=== PATIENT | male | born 1955 | race Caucasian/White ===

== ENCOUNTER 2016-07-08 12:20 | Inpatient (IN) | payer OTHER ==
[~2016-07-08] VITALS: Ht 180.3 cm; Wt 83.0 kg
[~2016-07-08 12:20] MED LIST: ATORVASTATIN CA20 MG PO; ESCITALOPRAM10 MG PO; LISINOPRIL40 MG PO; METOPROLOL TART50 MG PO
--- NOTE | 2016-07-08 12:23 | NUR ---
PT IN AGREEMENT TO APPROX 1.5 HR WAIT PRIOR TO SIGNING IN.
--- NOTE | 2016-07-08 12:35 | NUR ---
TRIAGE: 60 Y/O MALE PRESENTS C/O 10/10 LEFT SIDED ABDOMINAL PAIN SINCE 0300 THIS MORNING. REPORTS +N/+V/-DIARRHEA THIS MORNING WELL. LAST BM THIS MORNING, NORMAL PER PATIENT. PT DENEIS CHEST PAIN, SOB. REPORTS PAINFUL INSPIRATIONS.
--- NOTE | 2016-07-08 13:04 | ED GENERAL ADULT ---
History of Present Illness General Chief Complaint: Abdominal Pain/Flank Pain Stated Complaint: ABD PAIN, X 12 HRS Source: patient Exam Limitations: no limitations Vital Signs & Intake/Output Vital Signs & Intake/Output Vital Signs Date Time Temp Pulse Resp B/P B/P Pulse O2 O2 Flow FiO2 Mean Ox Delivery Rate 07/08 1545 97.5 107 18 140/93 91 07/08 1432 98.4 110 20 184/78 07/08 1411 98.4 110 20 184/78 94 Room Air 07/08 1233 98.3 115 18 183/100 97 Room Air Room Air Allergies Coded Allergies: NO KNOWN ALLERGIES (10/14/14) Reconcile Medications Aspirin (Aspirin*) 81 MG TAB.CHEW 1 TAB PO DAILY CARDIAC (Reported) Atorvastatin Calcium 20 MG TABLET 1 TAB PO DAILY HPL (Reported) Escitalopram Oxalate 20 MG TABLET 1 TAB PO DAILY MENTAL HEALTH (Reported) Lisinopril 40 MG TABLET 1 TAB PO DAILY HTN (Reported) Trazodone HCl 50 MG TABLET 1 TAB PO QPM INSOMNIA (Reported) Triage Note: TRIAGE: 60 Y/O MALE PRESENTS C/O 10/10 LEFT SIDED ABDOMINAL PAIN SINCE 0300 THIS MORNING. REPORTS +N/+V/-DIARRHEA THIS MORNING WELL. LAST BM THIS MORNING, NORMAL PER PATIENT. PT DENEIS CHEST PAIN, SOB. REPORTS PAINFUL INSPIRATIONS. Triage Nurses Notes Reviewed? yes Onset: Abrupt Duration: hour(s): Timing: recent history HPI: 07/08/16 2 PM This is a 60-year-old male who presents to the emergency department complaining of abdominal pain and bilious vomiting. The patient states he was in his usual state of health until today when he's had 3-4 episodes of vomiting up bile and periumbilical pain. He denies fever or diarrhea. His last bowel movement was earlier today and was normal. There was no blood in the stool. He has a past medical history of corneal problems. Past surgical history for corneal transplant, he also has a cervical fusion. His medications include lisinopril, Lipitor, aspirin and trazodone for sleep. He denies any drug allergies. He also has a history of low back pain. He grades the pain is 8 out of 10 right now. The onset of the symptoms were abrupt, the duration was just today, the severity was significant; as his symptoms required him to come to the emergency department for care. Past History Travel History Traveled to [place] past 21 day No Medical History Any Pertinent Medical History? 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 No Review of Systems Review of Systems Constitutional: Denies: fever. EENTM: Reports: see HPI. Respiratory: Denies: short of breath. Cardiovascular: Denies: chest pain. GI: Reports: abdominal pain, nausea, vomiting. Genitourinary: Reports: no symptoms. Musculoskeletal: Reports: back pain. Skin: Denies: rash. Neurological/Psychological: Denies: headache, numbness. Hematologic/Endocrine: Reports: no symptoms. Denies: bleeding. Physical Exam Physical Exam General Appearance: well developed/nourished, alert, awake, anxious, mild distress Head: atraumatic, normal appearance Eyes: Bilateral: normal appearance, PERRL, EOMI. Ears, Nose, Throat: normal pharynx, normal ENT inspection Neck: normal inspection, full range of motion Respiratory: normal breath sounds, chest non-tender, no respiratory distress Cardiovascular: regular rate/rhythm Peripheral Pulses: 4+ radial (R), 4+ radial (L) Gastrointestinal: soft, tenderness (periumbilical) Back: normal range of motion, no vertebral tenderness Extremities: normal inspection, normal range of motion, no edema Neurologic/Psych: no motor/sensory deficits, awake, alert, oriented x 3 Skin: intact, normal color, warm/dry Core Measures ACS in differential dx? No CVA/TIA Diagnosis: No Severe Sepsis Present: No Septic Shock Present: No Progress Differential Diagnoses I considered the following diagnoses in my evaluation of the patient: [ Pancreatitis, cholecystitis, cholelithiasis, appendicitis, diverticulitis, renal colic] Plan of Care: Orders Procedure Date/time Status Nothing by Mouth 07/09 B Active ED Holding Orders 07/08 164 Active Admit to inpatient 07/08 1642 Active Vital Signs 07/08 1642 Active Code Status 07/08 1642 Active Add-on Test (ER Only) 07/08 1534 Active TROPONIN LEVEL 07/08 1330 Complete LIPID PANEL 07/08 1330 Complete DIRECT LDL 07/08 1330 Complete EKG 07/08 1317 Active URINALYSIS 07/08 1316 Complete LIPASE 07/08 1316 Complete COMPREHENSIVE METABOLIC PANEL 07/08 131 Complete CBC WITHOUT DIFFERENTIAL 07/09 1315 Complete AMYLASE 07/08 131 Complete Laboratory Tests 07/08/16 1342: Urine Color YEL, Urine Clarity CLEAR, Urine pH 6.0, Ur Specific Holmen >= 1.030 , Urine Protein TRACE H, Urine Ketones 15 H, Urine Nitrite NEG, Urine Bilirubin NEG, Urine Urobilinogen 0.2, Ur Leukocyte Esterase NEG, Ur Microscopic SEDIMENT EXAMINED, Urine RBC 1-3, Urine Mucus PACKD H, Urine Hemoglobin SMALL H, Urine Glucose NEG 07/08/16 1330: Anion Gap 13, Estimated GFR > 60, BUN/Creatinine Ratio 17.1, Glucose 109 H, Calcium 8.6, Total Bilirubin 1.3, AST 269 H, ALT 196 H, Alkaline Phosphatase 141 H, Troponin I < 0.01, Total Protein 7.4, Albumin 4.0, Globulin 3.4, Albumin /Globulin Ratio 1.2, Triglycerides 2470 H, Cholesterol 283 H, LDL Cholesterol Direct < 30.00, LDL Cholesterol, Calc ND, HDL Cholesterol 25 L, Cholesterol/HDL Ratio 11 H, Amylase 93, Lipase 425 H, CBC w Diff NO MAN DIFF REQ, RBC 4.66 L, MCV 99.8 H, MCH 35.1 H, RDW 13.5, MPV 7.9, Gran % 93.3 H, Lymphocytes % 2.8 L, Monocytes % 3.6, Eosinophils % 0.2, Basophils % 0.1, Absolute Granulocytes 11.7 H, Absolute Lymphocytes 0.4 L, Absolute Monocytes 0.5, Absolute Eosinophils 0, Absolute Basophils 0, PUBS MCHC 35.2 07/08/16 1317: Troponin I Cancelled Initial ED EKG: sinus tachycardia, NSST ABNORMALITY, NO SIG CHANGE FROM THE OLD. Prior EKG: unchanged Departure Departure Disposition: STILL A PATIENT Condition: Stable Clinical Impression Primary Impression: Abdominal pain Referrals: PATTI COLE,JAMMIE Kamara (PCP/Family) Departure Forms: Customer Survey General Discharge Information Comments The patient was treated with IV fluids, IV Zofran and IV Dilaudid. labs and CT ordered. Admission Note Spoke With: FRAN CHAHAL M.D Documentation of Exam: Documentation of any treatments & extenuating circumstances including Concerns Regarding Discharge (functional status, medication knowledge or non-compliance, living conditions, etc.) that warrant an admission rather than observation: [The patient needs admission for IV fluids, IV narcotics for pain control, GI consultation] He is in severe pain requiring IV narcotics PATIENT: KENNETH MCGILL PRESENT AGE: 60 PATIENT ACCOUNT NO: [id number] : 53 LOCATION: [facility] ORDERING PHYSICIAN: FATMATA RIVAS DO SERVICE DATE: 07/08/16 EXAM TYPE: CAT - CT ABD & PELVIS W IV CONTRAST EXAMINATION: CT ABDOMEN AND PELVIS WITH CONTRAST CLINICAL INFORMATION: Periumbilical pain. Evaluate for acute diverticulitis. COMPARISON: None. TECHNIQUE: Multidetector volumetric imaging was performed of the abdomen and pelvis before and after the IV administration of 95 mL of Optiray 320 intravenous contrast. Sagittal and coronal reformatted images were obtained on the technologist's workstation. DLP: 322 mGy-cm FINDINGS: LUNG BASES: Minimal dependent bibasilar atelectasis. LIVER, GALLBLADDER, AND BILIARY TREE: There is diffuse low-attenuation of the liver parenchyma, indicative of diffuse hepatic steatosis. The liver is otherwise normal in size, shape and contour. Of note, there is an enhancing lesion within the hepatic dome measuring 1.4 x 1.4 cm (series 2, image 7). This lesion is incompletely characterized on this examination. The gallbladder is unremarkable with no evidence of radiopaque gallstones, gallbladder wall thickening, or obvious pericholecystic inflammatory changes. PANCREAS: Evaluation of the pancreas demonstrates diffuse peripancreatic inflammatory changes surrounding the distal pancreatic tail with mild heterogeneity identified within the distal pancreatic tail. This may reflect an acute pancreatitis. There are diffuse calcifications scattered throughout the pancreatic parenchyma, indicative of sequela of chronic pancreatitis. No organizing peripancreatic fluid collections are identified. SPLEEN: Unremarkable. ADRENAL GLANDS: Thickening of the bilateral adrenal glands, without visible discrete nodularity. KIDNEYS AND URETERS: The kidneys are normal in size, shape, and attenuation. No hydronephrosis, hydroureter, or calculi seen. No perinephric stranding. There are several hypoattenuating lesions within the upper pole of the right kidney visualized measuring up to 1.3 cm. This lesions are too small to further characterize but statistically speaking, most likely senior patient account representative of simple renal cortical cysts. BLADDER: Unremarkable. GASTROINTESTINAL TRACT: Normal anatomic orientation of the stomach relative to the duodenum. Normal caliber of abdominal and pelvic bowel loops, without evidence of obstruction or ileus. No circumferential bowel wall thickening with surrounding inflammatory changes to suggest an underlying infectious or inflammatory enterocolitis. Scattered colonic diverticulosis, without secondary signs of acute diverticulitis. Normal-appearing appendix within the right lower quadrant of the abdomen. No organizing intra-abdominal fluid collections or free intraperitoneal air. ABDOMINAL WALL: No significant hernia is appreciated. LYMPH NODES: Mildly prominent peripancreatic lymph nodes, likely reactive given findings suggestive of focal pancreatitis involving the distal pancreatic tail. VASCULAR: Extensive atherosclerosis of the abdominal aorta and its branching vessels, without aneurysmal dilatation. The abdominal aorta and abdominal and pelvic vessels appear to be grossly patent and opacified by intravenous contrast. PELVIC VISCERA: Unremarkable. OSSEOUS STRUCTURES: Degenerative changes of the imaged thoracolumbar spine. No visible destructive osseous lesions. Grade 1 anterolisthesis of L5 on S1. 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 IMPRESSION: 1. Diffuse peripancreatic inflammatory changes surrounding the distal pancreatic tail. This may represent focal pancreatitis of the distal pancreatic tail. Correlate with pancreatic enzyme levels. 2. Coarse calcifications scattered throughout the pancreas, indicative of sequela of chronic pancreatitis. 3. Focal heterogeneity within the distal pancreatic tail. This finding is entirely nonspecific and may represent edematous changes within the distal pancreatic tail given findings suggestive of acute focal pancreatitis. However, an underlying mass within this region cannot be entirely excluded. A nonemergent multiphase contrast-enhanced CT or MRI of the abdomen may be obtained for further characterization (pancreatic mass protocol). 4. Diffuse hepatic steatosis. Of note, there is a 1.4 x 1.4 cm enhancing lesion within the hepatic dome, incompletely characterized on this examination. This lesion may be further characterized on multiphase contrast-enhanced CT or MRI of the abdomen (liver mass protocol). The contrast-enhanced MRI of the abdomen would be helpful in evaluating both the distal pancreatic tail as well as the liver barring any contraindications to MRI. 5. 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 DICTATED BY: JACE CHEN MD DATE/TIME DICTATED:07/08/161515 SHOP WORKER:MILAN DATE/TIME TRANSCRIBED:07/08/161515 CONFIDENTIAL, DO NOT COPY WITHOUT APPROPRIATE AUTHORIZATION. <Electronically signed in Other Vendor System> SIGNED BY: JACE CHEN MD 07/08/16 1529 Critical Care Note Critical Care Note Critical Care Time: non-applicable
--- NOTE | 2016-07-08 13:11 | NUR ---
DR RIVAS AT BEDSIDE FOR EVAL
--- NOTE | 2016-07-08 13:46 | NUR ---
IV EST. BLOOD (SST/LAV/BLUE/MOYA/PINK) AND URINE TRIO SENT TO LAB. EKG SHOWN TO DR RIVAS. MEDICATED PER ORDERS. PT AND AWARE THEY ARE AWAITING CT SCAN.
[2016-07-08 13:55] LABS: ABSOLUTE BASOPHIL COUNT 0 /CUMM (0.0-0.2); ABSOLUTE EOSINOPHIL COUNT 0 /CUMM (0.0-0.7); ABSOLUTE GRANULOCYTE CT 11.7 /CUMM (1.4-6.5); ABSOLUTE LYMPH COUNT 0.4 /CUMM (1.2-3.4); ABSOLUTE MONOCYTE COUNT 0.5 /CUMM (0.10-0.60); BASOPHIL % 0.1 % (0.0-2.0); EOSINOPHIL % 0.2 % (0-5); HEMATOCRIT 46.5 % (42-52); MEAN CORPUSCULAR HGB 35.1 PG (27.0-31.0); MEAN CORPUSCULAR HGB CONC 35.2 G/DL (33.0-37.0); MEAN CORPUSCULAR VOLUME 99.8 FL (80.0-94.0); MEAN PLATELET VOLUME 7.9 FL (7.4-10.4); PLATELET COUNT 150 /CUMM (130-400); RBC DISTRIBUTION WIDTH 13.5 % (11.5-14.5); RED BLOOD CELL CT 4.66 /CUMM (4.70-6.10); WHITE BLOOD CELL COUNT 12.6 /CUMM (4.8-10.8)
[2016-07-08 14:07] LABS: GRANULOCYTE % 93.3 % (42.2-75.2)
[2016-07-08] MEDS ORDERED: TRAZODONE HCL50 M1 PO (14:11)
[2016-07-08] MEDS ORDERED: ESCITALOPRAM OX20 MG PO (14:12)
[2016-07-08] MEDS ORDERED: LISINOPRIL40 M1 PO (14:12)
[2016-07-08] MEDS ORDERED: ATORVASTATIN CA20 M1 PO (14:12)
--- NOTE | 2016-07-08 14:18 | NUR ---
DR RIVAS INFORMED OF VITALS AND PT C/O ONGOING PAIN. PT TO CT SCAN, WILL GIVE TYLENOL AND LISINOPRIL WHEN HE RETURNS.
[2016-07-08] MEDS ORDERED: ASPIRIN81 M4 PO (14:56)
--- NOTE | 2016-07-08 15:29 | CT SCAN REPORT ---
EXAMINATION: CT ABDOMEN AND PELVIS WITH CONTRAST CLINICAL INFORMATION: Periumbilical pain. Evaluate for acute diverticulitis. COMPARISON: None. TECHNIQUE: Multidetector volumetric imaging was performed of the abdomen and pelvis before and after the IV administration of 95 mL of Optiray 320 intravenous contrast. Sagittal and coronal reformatted images were obtained on the technologist's workstation. DLP: 322 mGy-cm FINDINGS: LUNG BASES: Minimal dependent bibasilar atelectasis. LIVER, GALLBLADDER, AND BILIARY TREE: There is diffuse low-attenuation of the liver parenchyma, indicative of diffuse hepatic steatosis. The liver is otherwise normal in size, shape and contour. Of note, there is an enhancing lesion within the hepatic dome measuring 1.4 x 1.4 cm (series 2, image 7). This lesion is incompletely characterized on this examination. The gallbladder is unremarkable with no evidence of radiopaque gallstones, gallbladder wall thickening, or obvious pericholecystic inflammatory changes. PANCREAS: Evaluation of the pancreas demonstrates diffuse peripancreatic inflammatory changes surrounding the distal pancreatic tail with mild heterogeneity identified within the distal pancreatic tail. This may reflect an acute pancreatitis. There are diffuse calcifications scattered throughout the pancreatic parenchyma, indicative of sequela of chronic pancreatitis. No organizing peripancreatic fluid collections are identified. SPLEEN: Unremarkable. ADRENAL GLANDS: Thickening of the bilateral adrenal glands, without visible discrete nodularity. KIDNEYS AND URETERS: The kidneys are normal in size, shape, and attenuation. No hydronephrosis, hydroureter, or calculi seen. No perinephric stranding. There are several hypoattenuating lesions within the upper pole of the right kidney visualized measuring up to 1.3 cm. This lesions are too small to further characterize but statistically speaking, most likely risk control field representative of simple renal cortical cysts. BLADDER: Unremarkable. GASTROINTESTINAL TRACT: Normal anatomic orientation of the stomach relative to the duodenum. Normal caliber of abdominal and pelvic bowel loops, without evidence of obstruction or ileus. No circumferential bowel wall thickening with surrounding inflammatory changes to suggest an underlying infectious or inflammatory enterocolitis. Scattered colonic diverticulosis, without secondary signs of acute diverticulitis. Normal-appearing appendix within the right lower quadrant of the abdomen. No organizing intra-abdominal fluid collections or free intraperitoneal air. ABDOMINAL WALL: No significant hernia is appreciated. LYMPH NODES: Mildly prominent peripancreatic lymph nodes, likely reactive given findings suggestive of focal pancreatitis involving the distal pancreatic tail. VASCULAR: Extensive atherosclerosis of the abdominal aorta and its branching vessels, without aneurysmal dilatation. The abdominal aorta and abdominal and pelvic vessels appear to be grossly patent and opacified by intravenous contrast. PELVIC VISCERA: Unremarkable. OSSEOUS STRUCTURES: Degenerative changes of the imaged thoracolumbar spine. No visible destructive osseous lesions. Grade 1 anterolisthesis of L5 on S1. 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 IMPRESSION: 1. Diffuse peripancreatic inflammatory changes surrounding the distal pancreatic tail. This may represent focal pancreatitis of the distal pancreatic tail. Correlate with pancreatic enzyme levels. 2. Coarse calcifications scattered throughout the pancreas, indicative of sequela of chronic pancreatitis. 3. Focal heterogeneity within the distal pancreatic tail. This finding is entirely nonspecific and may represent edematous changes within the distal pancreatic tail given findings suggestive of acute focal pancreatitis. However, an underlying mass within this region cannot be entirely excluded. A nonemergent multiphase contrast-enhanced CT or MRI of the abdomen may be obtained for further characterization (pancreatic mass protocol). 4. Diffuse hepatic steatosis. Of note, there is a 1.4 x 1.4 cm enhancing lesion within the hepatic dome, incompletely characterized on this examination. This lesion may be further characterized on multiphase contrast-enhanced CT or MRI of the abdomen (liver mass protocol). The contrast-enhanced MRI of the abdomen would be helpful in evaluating both the distal pancreatic tail as well as the liver barring any contraindications to MRI. 5. 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
--- NOTE | 2016-07-08 16:01 | NUR ---
DR RIVAS AT BEDSIDE TO DISCUSS RESULTS/PLAN
--- NOTE | 2016-07-08 16:21 | NUR ---
PT MEDICATED FOR PAIN AGAIN PER DR RIVAS. PT AWARE OF POC FOR GEN MED ADMISSION, AWARE HE NEEDS TO REMAIN NPO.
--- NOTE | 2016-07-08 17:45 | NUR ---
HOUSE STAFF IN WITH PT
--- NOTE | 2016-07-08 17:59 | NUR ---
PT ASSIGNED TO ROOM [id number]
--- NOTE | 2016-07-08 18:33 | History & Physical ---
PHILIPPEWOODY 07/08/16 1824: General Information and HPI MD Statement: I have seen and personally examined KENNETH MCGILL and documented this H&P. The patient is a 60 year old M who presented with a patient stated chief complaint of abdominal pain, nausea and vomiting. Source of Information: patient, family Exam Limitations: no limitations History of Present Illness: Patient is a 60-year-old gentleman with no significant past medical history presents to ED with sudden onset of epigastric pain associated with multiple episodes of nonbloody vomitus. The patient describes the pain as sharp 10/10 intensity that started 3 AM this morning and prompted his current visit to the ED. No aggravating or alleviating factors. Patient admits to excessive alcohol use several years ago, but currently drinks a couple beers every other day. Current everyday smoker. No other drug use. No recent change in medication list. Past history significant for high triglyceride levels, with patient straight levels of 1100 several years ago. Also endorses a tick bite 2 years ago, for which she got worked up at Dr. Blanco's office, came back negative for Lymes. No fevers or chills. Recent weight loss of 6 pounds, nonintentional. Poor appetite. Tearful during interview. Allergies/Medications Home Med list Aspirin (Aspirin*) 81 MG TAB.CHEW 1 TAB PO DAILY CARDIAC (Reported) Atorvastatin Calcium 20 MG TABLET 1 TAB PO DAILY HPL (Reported) Escitalopram Oxalate 20 MG TABLET 1 TAB PO DAILY MENTAL HEALTH (Reported) Lisinopril 40 MG TABLET 1 TAB PO DAILY HTN (Reported) Trazodone HCl 50 MG TABLET 1 TAB PO QPM INSOMNIA (Reported) Past History Travel History Traveled to [place] past 21 day No Medical History Neurological: NONE EENT: FUCHS DISEASE Cardiovascular: hypertension, hyperlipidemia Respiratory: NONE Gastrointestinal: NONE Hepatic: NONE Renal: NONE Musculoskeletal: rheumatoid arthritis, DEGENTIVE DISC DX Psychiatric: anxiety Endocrine: NONE Blood Disorders: NONE Cancer(s): NONE 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 Exam & Diagnostic Data Last 24 Hrs of Vital Signs/I&O Vital Signs Date Time Temp Pulse Resp B/P B/P Pulse O2 O2 Flow FiO2 Mean Ox Delivery Rate 07/08 1835 96.9 108 20 160/90 94 Room Air 07/08 1545 97.5 107 18 140/93 91 07/08 1432 98.4 110 20 184/78 05 1411 98.4 110 20 184/78 94 Room Air 07/08 1233 98.3 115 18 183/100 97 Room Air Room Air Intake & Output 07/08 1600 07/08 0800 07/08 0000 Intake Total Output Total Balance Patient 184 lb Weight Weight Reported by Patient Measurement Method Physical Exam General Appearance Alert, Oriented X3, Cooperative Skin No Rashes, No Breakdown HEENT Atraumatic Neck Supple Cardiovascular Regular Rate, Normal S1, Normal S2 Lungs Clear to Auscultation, Normal Air Movement Abdomen Normal Bowel Sounds, Soft, epigastric tenderness. Extremities No Clubbing, No Cyanosis, No Edema Diagnostic Data Other Results Abdominal CT: 1. Very subtle findings are seen with suggestion of gastric wall thickening involving the fundus and body with minimal surrounding hyperemia and adenitis. Findings are best appreciated on the thin section images and in the clinical setting provided, raise the question of subtle gastritis. Endoscopic correlation is requested. 2. No evidence of bowel obstruction or perforation is seen. 3. Scattered colonic diverticulosis with no evidence of acute diverticulitis. 4. Abnormal infiltration of the skin and the underlying fat in the periumbilical region. This may be related to acute cellulitis/panniculitis versus posttraumatic or postsurgical change. Close clinical correlation is requested. 5. Nonobstructing mid right renal calcification. 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 Patient does have history of excess alcohol intake several years ago, current alcohol consumption is 2 beers every other day. Yesterday, patient had 3-4 alcoholic drinks. Acute pancreatitis: Likely secondary to hypertriglyceridemia, or alcohol use. Aggressive IV hydration. Zofran for nausea vomiting. Analgesia with Dilaudid when necessary, avoid Tylenol given transaminitis. Nothing by mouth. CT evidence of possible pancreatic mass and liver mass. GI consult. Start gemfibrozil, get endocrinology consult. Insomnia: Continue trazodone(patient insists) by mouth, after Zofran. Continue all other meds tomorrow, as tolerated. DNR/DNI. As Ranked By This Provider Problem List: 1. Abdominal pain Core Measures/Miscellaneous Acute Coronary Syndrome ACS Diagnosis: No Cerebrovascular Accident CVA/TIA Diagnosis: No Congestive Heart Failure CHF Diagnosis: No Venous Thromboembolism VTE Risk Factors: Acute medical illness, Age > 40, Immobility, paresis [facility] prophylaxis d/t: No contraindications No VTE Pharm Prophylaxis d/t: No contraindications VTE Diagnosis: No VTE Type: NONE VTE Confirmed by (Test): NONE Severe Sepsis Severe Sepsis Present: No Septic Shock Septic Shock Present: No Miscellaneous Documentation Attending Case Discussed With: FRAN CHAHAL M.D Primary Care Physician: JAMMIE ARMSTRONG MD Patient sees these Specialists None Level of Patient Care: General Medicine [facility] 07/09[facility]16 0936: General Information and HPI Allergies/Medications Allergies: Coded Allergies: NO KNOWN ALLERGIES (UNKNOWN 07/09/16) Attending MD Review Statement Attending Statement Attending MD Statement: examined this patient, discuss w/resident/PA/RN HEDIS, agreed w/resident/PA/RN HEDIS, reviewed EMR data (avail)
--- NOTE | 2016-07-08 18:34 | NUR ---
PT AMBULATORY TO AND FROM BATHROOM. C/O PAIN ONGOING, ASKING FOR FOOD, RE-EDUCATED THAT PAIN WILL WORSEN WITH PO INTAKE. MEDICATED PER EMAR.
--- NOTE | 2016-07-08 19:16 | NUR ---
REPORT CALLED TO [facility] ON 2NA, MSG LEFT FOR DISTRIBUTION
[2016-07-08 19:38] VITALS: BP 140/80
--- NOTE | 2016-07-08 20:31 | NUR ---
PT ARIVVED TO FLOOR AT . 1929. A&O X2, NOT TO TIME. C/O PAIN, CALLED FOR NEW ORDERS. LUNGS CTA, SKIN INTACT. NS RUNNING PER EMAR. BED LOW, LOCKED, CALL HAWK WITHIN REACH. BED ALARM ON. MONITOR/MAINTAIN SAFETY PRECATIONS.
[2016-07-08 22:33] VITALS: BP 164/100
[2016-07-09] VITALS (9 sets, daily range): BP systolic 122–178; BP diastolic 80–104
--- NOTE | 2016-07-09 01:21 | NUR ---
PT BP 162/100, PULSE 102. PT UPPER EXTREMITIES NOTED TO BE TREMULOUS, C/O NAUSEA AND HEADACHE, ABDOMINAL SHARP PAIN 10/10. ZOFRAN GIVEN FOR NAUSEA BY PREVIOUS RNANA AND PAIN MED GIVEN. THIS RN PAGED TEE CHAVEZ MD ABOUT SYMPTOMS AND BP. SUGGESTED TO ADD CIWA PROTOCOL DUE TO PT'S HX OF ALCOHOL USE. CIWA AND ATIVAN PRN ADDED, MD AWARE OF BP AND NO NEW INTERVENTION FOR BP AT THIS TIME.
--- NOTE | 2016-07-09 03:10 | NUR ---
BP NOW 162/98 HR 102.
--- NOTE | 2016-07-09 07:45 | PN- Housestaff ---
Subjective Follow-up For: Acute pancreatitis Complaints: abdominal pain Subjective: Patient was seen and examined this morning. He was lying comfortably on bed but admits that he still feeling abdominal pain 4 out of 10. He mentioned that he try to sip water and his pain gets aggravated. He denied any nausea. He remained afebrile with normal vital signs Review of Systems Constitutional: Denies: chills, diaphoresis. Cardiovascular: Denies: chest pain, edema. Respiratory: Denies: cough, hemoptysis. Gastrointestinal: Reports: abdominal pain. Genitourinary: Denies: discharge, frequency. Objective Last 24 Hrs of Vital Signs/I&O Vital Signs Date Time Temp Pulse Resp B/P B/P Pulse O2 O2 Flow FiO2 Mean Ox Delivery Rate 07/09 1413 97.4 107 20 122/82 94 Room Air 07/09 0959 97.8 108 20 135/90 97 Room Air / 0926 140/90 / 0738 103 160/98 / 0738 103 160/98 / 0657 99.9 104 16 166/100 98 Room Air / 0600 99.9 98 16 160/98 /08 0309 98 162/98 /08 0210 98.8 98 16 178/104 93 Room Air 05/08 0000 98.2 102 16 162/100 / 2233 98.5 102 16 164/100 93 / 1938 97.6 109 20 140/80 93 Room Air / 1835 96.9 108 20 160/90 94 Room Air Intake & Output / 1600 /08 0800 05/08 0000 Intake Total 920 1600 600 Output Total 200 650 Balance 720 950 600 Intake, IV 800 1600 600 Intake, Oral 120 Number 0 Bowel Movements Output, Urine 200 650 Patient 182 lb Weight Physical Exam General Appearance: Alert, Oriented X3, Cooperative, No Acute Distress Cardiovascular: Regular Rate, Normal S1, Normal S2, No Murmurs Lungs: Normal Air Movement Abdomen: Normal Bowel Sounds, Soft, generalized tenderness Current Medications: Current Medications Sig/Sara Start time Last Medication Dose Route Stop Time Status Admin Aspirin 81 MG DAILY 07/09 1000 AC 05/08 PO 0926 Atorvastatin Calcium 20 MG 1700 / 1700 AC / PO 0934 Enoxaparin Sodium 40 MG DAILY 07/09 1000 AC 07/09 SC 0932 Escitalopram Oxalate 20 MG DAILY 07/09 1000 AC 07/09 PO 0926 Gemfibrozil 600 MG BID 07/08 2200 AC 07/09 PO 0927 Hydromorphone HCl 1 MG ONCE ONE 07/09 0800 DC 07/09 IV 07/09 0801 0803 Hydromorphone HCl 1 MG Q4P PRN 07/09 0800 AC 07/09 IV 1354 Hydromorphone HCl 0 .STK-MED ONE 07/08 1829 DC .ROUTE Hydromorphone HCl 0.6 MG Q4P PRN 07/08 1815 DC 07/09 IV 0614 Lactated Ringer's 1,000 ML .Q5H 07/09 1600 AC 07/09 IV 1619 Lisinopril 40 MG DAILY 07/09 1000 AC 07/09 PO 0926 Lorazepam 0 Q1P PRN 07/09 0030 AC IV Nicotine 21 MG DAILY 07/08 2145 AC 07/09 TOP 0927 Ondansetron HCl 0 .STK-MED ONE 07/08 1831 DC .ROUTE Ondansetron HCl 4 MG Q6 07/08 1810 HI 07/09 IV 07/09 1201 0932 Patient Medication 1 UNIT 1700 05/08 1700 HI 07/09 Teaching ED 0508 1701 1620 Patient Medication 1 UNIT ONE NR 07/09 0800 HI Teaching ED 07/09 1400 Patient Medication 1 UNIT ONE NR 07/09 0800 HI Teaching ED 07/09 1400 Patient Medication 1 UNIT ONE NR 07/08 1830 [facility] ED 07/08 1900 Sodium Chloride 1,000 ML Q13H / 0615 DC 07/09 IV 0614 Sodium Chloride 1,000 ML ONCE ONE 07/09 0045 DC 07/09 IV 07/09 0544 0108 Sodium Chloride 1,000 ML ONCE ONE 07/08 1830 DC / IV 07/08 2329 1834 Tramadol HCl 50 MG ONCE ONE 07/08 2145 DC 07/08 PO 07/08 2146 2358 Trazodone HCl 50 MG QPM 07/08 2245 AC 07/08 PO 2313 Last 24 Hrs of Lab/Raf Results Last 24 Hrs of Labs/Mics: Laboratory Tests 07/09/16 1615: PT 10.0, INR 0.95, APTT 31, Hepatitis A IgM Ab Pending, Hep Bs Antigen Pending, Hep B Core IgM Ab Conf Pending, Hepatitis C Antibody Pending 07/09/16 0625: Anion Gap 11, Estimated GFR > 60, BUN/Creatinine Ratio 10.0, Hemoglobin A1c Pending, Iron Pending, Ferritin Pending, Total Bilirubin 1.5 H, Direct Bilirubin 0.5 H, AST 137 H, ALT 140 H, Alkaline Phosphatase 119, Lactate Dehydrogenase Pending, C-Reactive Prot, Quant Pending, Total Protein 6.3, Albumin 3.4 L, CBC w Diff NO MAN DIFF REQ, RBC 4.50 L, MCV 100.9 H, MCH 34.4 H, RDW 14.3, MPV 8.3, Gran % 86.3 H, Lymphocytes % 7.0 L, Monocytes % 6.3, Eosinophils % 0.4, Basophils % 0 L, Absolute Granulocytes 7.7 H, Absolute Lymphocytes 0.6 L, Absolute Monocytes 0.6, Absolute Eosinophils 0, Absolute Basophils 0, PUBS MCHC 34.1, Thyroglobulin Antibody < 15, Thyroid Peroxidase Ab < 28, HIV 1&2 Ab Western Blot NONREACTIVE 07/09/16 0600: YOUSIF Titer Pending, Anti-Nuclear Antibody Pending Assessment/Plan Assessment: 60-year-old gentleman with sudden onset epigastric pain, associated with several episodes of nausea and vomiting, labs revealing of triglyceride level of 2400, with a CT evidence of pancreatitis, presentation suggestive of hypertriglyceridemia induced pancreatitis. Patient does have history of excess alcohol intake several years ago, current alcohol consumption is 2 beers every other day. Yesterday, patient had 3-4 alcoholic drinks. Acute pancreatitis: Likely secondary to hypertriglyceridemia, or alcohol use. Aggressive IV hydration with Ringer's lactate at 200 mils per hour. We will keep him nothing by mouth for now. * On CT abdomen focal heterogenicity within the distal pancreatic tail was noted as well as hepatic lesion was also noted. Patient was seen by gastroenterology . Consultation appreciated * MRI with and without gadolinium was ordered and we will follow-up if normal weekend try advancing his diet to clear liquids * YOUSIF, ferritin, ferrous, HIV, YOUSIF, AMA ordered and we will follow up results Alpha-fetoprotein levels were ordered too. * Chest x-ray was ordered * Zofran for nausea vomiting. Analgesia with Dilaudid when necessary, avoid Tylenol given transaminitis. Nothing by mouth. CT evidence of possible pancreatic mass and liver mass. GI consult. Start gemfibrozil, get endocrinology consult. Hypertriglyceridemia Endocrinology consultation was requested and appreciated We will check lipid panel, LFTs, we will repeat amylase and lipase in a.m. We'll continue statins and gemfibrozil Insomnia: Continue trazodone(patient insists) by mouth, after Zofran. Continue all other meds tomorrow, as tolerated. DNR/DNI. Problem List: 1. Nausea & vomiting 2. Hypertriglyceridemia Pain Ratin Pain Location: Abdominal Pain Goal: Pain 4 or less Pain Plan: Dilaudid Tomorrow's Labs & Rationales: CBC, BEP, LFTs, lipid panel, lipase and amylase
[2016-07-09 08:58] LABS: ABSOLUTE BASOPHIL COUNT 0 /CUMM (0.0-0.2); ABSOLUTE EOSINOPHIL COUNT 0 /CUMM (0.0-0.7); ABSOLUTE GRANULOCYTE CT 7.7 /CUMM (1.4-6.5); ABSOLUTE LYMPH COUNT 0.6 /CUMM (1.2-3.4); ABSOLUTE MONOCYTE COUNT 0.6 /CUMM (0.10-0.60); BASOPHIL % 0 % (0.0-2.0); EOSINOPHIL % 0.4 % (0-5); GRANULOCYTE % 86.3 % (42.2-75.2); HEMATOCRIT 45.4 % (42-52); MEAN CORPUSCULAR HGB 34.4 PG (27.0-31.0); MEAN CORPUSCULAR HGB CONC 34.1 G/DL (33.0-37.0); MEAN CORPUSCULAR VOLUME 100.9 FL (80.0-94.0); MEAN PLATELET VOLUME 8.3 FL (7.4-10.4); PLATELET COUNT 119 /CUMM (130-400); RBC DISTRIBUTION WIDTH 14.3 % (11.5-14.5); WHITE BLOOD CELL COUNT 8.9 /CUMM (4.8-10.8)
--- NOTE | 2016-07-09 09:31 | Admission Certification ---
Admission Certification Certification Statement - As attending physician, I certify that at the time of - admission, based on clinical presentation, severity of - symptoms, need for further diagnostic testing and - therapeutic interventions, and risk of adverse outcomes - without in-hospital treatment, in my clinical assessment, - this patient requires an acute hospital stay for a minimum - of two nights or longer. I have also considered psychsocial - factors such as support system, advanced age, financial - issues, cognitive issues, and failed out-patient treatments, - past re-admission history, safety of patient, and lack of - compliance as applicable. Specific rationale supporting this admission is: Pancreatitis
--- NOTE | 2016-07-09 09:37 | PN- Att Addend ---
Attending Addendum Attending Brief Note Patient complains of moderate abdominal pain. Denies passing gas. General Appearance: Alert, No Acute Distress Skin: Grossly normal HEENT: PEERLA Neck: Supple, No JVD Cardiovascular: Regular Rate, Normal S1, Normal S2, No Murmurs Lungs: Clear to Auscultation, Normal Air Movement Abdomen: Positive bowel sounds, epigastric tenderness Neurological: Normal Speech, Strength at 5/5 X4 Ext, Cranial Nerves 3-12 NL, Reflexes 2+ Extremities: No Clubbing, No Cyanosis, No Edema Vascular: Normal Pulses Assessment 60-year-old with history of hypertriglyceridemia, hypertension and insomnia presenting with complaints of epigastric pain. He reports having a few drinks prior to admission. He does have history of alcohol dependence in the past and recently has cut down. CAT scan suggested mild pruritus with possible mass in the tail of pancreas and a 1.4 cm enhancing lesion in the liver which probably will need further characterization with MRI. Also noted hypertriglyceridemia which might be the primary cause of pancreatitis. Plan Continue IV fluids, increase IV fluids to 1 25 mL/h MRI abdomen if cervical hardware is compatible Continue gemfibrozil GI consult Keep nothing by mouth Continue current pain meds CIWA protocol with Ativan Current Medications Sig/Sara Start time Last Medication Dose Route Stop Time Status Admin Acetaminophen 0 .STK-MED ONE 07/08 1419 DC IV Acetaminophen 1,000 MG ONCE ONE 07/08 1415 DC 07/08 IV 07/08 1416 1432 Aspirin 81 MG DAILY 07/09 1000 AC 07/09 PO 0926 Atorvastatin Calcium 20 MG 1700 /08 1700 AC 07/09 PO 0934 Enoxaparin Sodium 40 MG DAILY 07/09 1000 AC 07/09 SC 0932 Escitalopram Oxalate 20 MG DAILY 07/09 1000 AC / PO 0926 Gemfibrozil 600 MG BID 07/08 2200 AC 07/09 PO 0927 Hydromorphone HCl 1 MG ONCE ONE 07/09 0800 DC 07/09 IV 07/09 0801 0803 Hydromorphone HCl 1 MG Q4P PRN 07/09 0800 AC IV Hydromorphone HCl 0 .STK-MED ONE 07/08 1829 DC .ROUTE Hydromorphone HCl 0.6 MG Q4P PRN 07/08 1815 DC 07/09 IV 0614 Hydromorphone HCl 0.5 MG ONCE ONE 07/08 1615 DC 05/07 IV 05/ 1616 1620 Hydromorphone HCl 0 .STK-MED ONE 07/08 1613 DC .ROUTE Hydromorphone HCl 0 .STK-MED ONE 07/08 1419 DC .ROUTE Hydromorphone HCl 0.5 MG ONCE ONE 07/08 1415 DC 05/07 IV 05 1416 1418 Hydromorphone HCl 1 MG ONCE ONE 07/08 1330 DC 05/07 IV 07/08 1331 1333 Hydromorphone HCl 0 .STK-MED ONE 07/08 1322 DC .ROUTE Lisinopril 40 MG DAILY 07/09 1000 AC 07/09 PO 0926 Lisinopril 0 .STK-MED ONE 07/08 1419 DC PO Lisinopril 40 MG ONCE ONE 07/08 1415 DC 05 PO 07/08 1416 1432 Lorazepam 0 Q1P PRN 07/09 0030 IV Nicotine 21 MG DAILY 07/08 2145 07/09 TOP 0927 Ondansetron HCl 0 .STK-MED ONE 07/08 1831 DC .ROUTE Ondansetron HCl 4 MG Q6 07/08 1810 /08 IV 0508 1201 0932 Ondansetron HCl 4 MG ONCE ONE 07/08 1330 DC 05/ IV 07/08 1331 1333 Ondansetron HCl 0 .STK-MED ONE 07/08 1322 DC .ROUTE Patient Medication 1 UNIT 1700 05/08 1700 Teaching ED 07/09 1701 Patient Medication 1 UNIT ONE NR 07/09 0800 [facility] ED 07/09 1400 Patient Medication 1 UNIT ONE NR 07/09 0800 [facility] ED 07/09 1400 Patient Medication 1 UNIT ONE NR 07/08 1830 [place] Teaching ED / 1900 Sodium Chloride 1,000 ML Q13H /08 0615 05/08 IV /08 1914 0614 Sodium Chloride 1,000 ML ONCE ONE 07/09 0045 DC 05/08 IV 0508 0544 0108 Sodium Chloride 1,000 ML ONCE ONE 07/08 1830 DC 05/07 IV 05/ 2329 1834 Sodium Chloride 1,000 ML BOLUS ONE 07/08 1315 DC 05/07 IV / 1414 1333 Tramadol HCl 50 MG ONCE ONE 07/08 2144 DC 07/08 PO 07/08 2146 2358 Trazodone HCl 50 MG QPM 07/08 2245 AC 07/08 PO 2313 Laboratory Tests 07/09 07/08 06 1342 Chemistry Sodium (137 - 145 mmol/L) 133 L Potassium (3.5 - 5.1 mmol/L) 3.8 Chloride (98 - 107 mmol/L) 99 Carbon Dioxide (22 - 30 mmol/L) 23 Anion Gap (5 - 16) 11 BUN (9 - 20 mg/dL) 6 L Creatinine (0.7 - 1.2 mg/dL) 0.6 L Estimated GFR (>60 ml/min) > 60 BUN/Creatinine Ratio (7 - 25 %) 10.0 Total Bilirubin (0.2 - 1.3 mg/dL) 1.5 H Direct Bilirubin (< 0.4 mg/dL) 0.5 H AST (17 - 59 U/L) 137 H ALT (21 - 72 U/L) 140 H Alkaline Phosphatase (< 127 U/L) 119 Total Protein (6.3 - 8.2 g/dL) 6.3 Albumin (3.5 - 5.0 g/dL) 3.4 L Hematology CBC w Diff Pending WBC Pending RBC Pending Hgb Pending Hct Pending MCV Pending MCH Pending RDW Pending Plt Count Pending MPV Pending Gran % Pending Lymphocytes % Pending Monocytes % Pending Eosinophils % Pending Basophils % Pending Absolute Granulocytes Pending Absolute Lymphocytes Pending Absolute Monocytes Pending Absolute Eosinophils Pending Absolute Basophils Pending PUBS MCHC Pending Urines Urine Color (YEL,AMB,STR) YEL Urine Clarity (CLEAR) CLEAR Urine pH (5.0 - 8.0) 6.0 Ur Specific [place] (1.001 - 1.035) >= 1.030 Urine Protein (NEG,<30 MG/DL) TRACE H Urine Ketones (NEG) 15 H Urine Nitrite (NEG) NEG Urine Bilirubin (NEG) NEG Urine Urobilinogen (0.1 - 1.0 EU/dl) 0.2 Ur Leukocyte Esterase (NEG) NEG Ur Microscopic SEDIMENT EXAMINED Urine RBC (0 - 5 /HPF) 1-3 Urine Mucus (FEW,NONE) PACKD H Urine Hemoglobin (NEG) SMALL H Urine Glucose (N MG/DL) NEG 07/08 07/08 1330 1317 Chemistry Sodium (137 - 145 mmol/L) 134 L Potassium (3.5 - 5.1 mmol/L) 4.1 Chloride (98 - 107 mmol/L) 96 L Carbon Dioxide (22 - 30 mmol/L) 24 Anion Gap (5 - 16) 13 BUN (9 - 20 mg/dL) 12 Creatinine (0.7 - 1.2 mg/dL) 0.7 Estimated GFR (>60 ml/min) > 60 BUN/Creatinine Ratio (7 - 25 %) 17.1 Glucose (65 - 99 mg/dL) 109 H Calcium (8.4 - 10.2 mg/dL) 8.6 Total Bilirubin (0.2 - 1.3 mg/dL) 1.3 AST (17 - 59 U/L) 269 H ALT (21 - 72 U/L) 196 H Alkaline Phosphatase (< 127 U/L) 141 H Troponin I (<0.11 ng/ml) < 0.01 Cancelled Total Protein (6.3 - 8.2 g/dL) 7.4 Albumin (3.5 - 5.0 g/dL) 4.0 Globulin (1.9 - 4.2 gm/dL) 3.4 Albumin/Globulin Ratio (1.1 - 2.2 %) 1.2 Triglycerides (<150 mg/dL) 2470 H Cholesterol (< 200 MG/DL) 283 H LDL Cholesterol Direct (<100 mg/dL) < 30.00 LDL Cholesterol, Calc (65 - 129 mg/dL) ND HDL Cholesterol (40 - 60 mg/dL) 25 L Cholesterol/HDL Ratio (0.00 - 4.88 %) 11 H Amylase (30 - 110 U/L) 93 Lipase (23 - 300 U/L) 425 H Hematology CBC w Diff NO MAN DIFF REQ WBC (4.8 - 10.8 /CUMM) 12.6 H RBC (4.70 - 6.10 /CUMM) 4.66 L Hgb (14.0 - 18.0 G/DL) 16.4 Hct (42 - 52 %) 46.5 MCV (80.0 - 94.0 FL) 99.8 H MCH (27.0 - 31.0 PG) 35.1 H RDW (11.5 - 14.5 %) 13.5 Plt Count (130 - 400 /CUMM) 150 MPV (7.4 - 10.4 FL) 7.9 Gran % (42.2 - 75.2 %) 93.3 H Lymphocytes % (20.5 - 51.1 %) 2.8 L Monocytes % (1.7 - 9.3 %) 3.6 Eosinophils % (0 - 5 %) 0.2 Basophils % (0.0 - 2.0 %) 0.1 Absolute Granulocytes (1.4 - 6.5 /CUMM) 11.7 H Absolute Lymphocytes (1.2 - 3.4 /CUMM) 0.4 L Absolute Monocytes (0.10 - 0.60 /CUMM) 0.5 Absolute Eosinophils (0.0 - 0.7 /CUMM) 0 Absolute Basophils (0.0 - 0.2 /CUMM) 0 PUBS MCHC (33.0 - 37.0 G/DL) 35.2 Vital Signs Date Time Temp Pulse Resp B/P B/P Pulse O2 O2 Flow FiO2 Mean Ox Delivery Rate 07/09 0926 140/90 05/08 0738 103 160/98 05/08 0738 103 160/98 05/08 0657 99.9 104 16 166/100 98 Room Air 05/08 0600 99.9 98 16 160/98 05/08 0309 98 162/98 05/08 0210 98.8 98 16 178/104 93 Room Air 05/08 0000 98.2 102 16 162/100 05/07 2233 98.5 102 16 164/100 93 05/07 1938 97.6 109 20 140/80 93 Room Air 05/07 1835 96.9 108 20 160/90 94 Room Air 05/07 1545 97.5 107 18 140/93 91 05/07 1432 98.4 110 20 184/78 05/07 1411 98.4 110 20 184/78 94 Room Air 05/07 1233 98.3 115 18 183/100 97 Room Air Room Air
--- NOTE | 2016-07-09 12:15 | Cons- Gastroenterology ---
See Addendum General Information and HPI Consulting Request Date of Consult: 07/09/16 Requested By: KURTIS ELIZALDE MD Reason for Consult: I was notified this morning of a request to assess pancreatitis, abnormal LFTs, nonspecific lesion dome of liver & questionable lesion caliber pancreas on imaging studies, in a patient with a history of EtOH and elevated TG 2470, HD # 2. (The patient is being seen in GI coverage for Dr. Michael Bazzi). Source of Information: patient, family (pt's sister, Liza), old records Exam Limitations: no limitations History of Present Illness: 60-year-old male, HTN/HLD (*remote TG > 1100)/non-DM/DJD/C-spine surgery/corneal transplant OD/anxiety/depression/chronic pancreatic calcifications on previous imaging studies/longtime cigarette smoker (> 46 pk yr, currently 1/2 ppd)/COPD/ past history of excessive EtOH x years (currently " a couple of beers & a shot every other day," for past few weeks [employer]), denies illicit drug use, who presented to the [facility] 07/08/2016 at 12:20 PM, complaining of "10 out of 10 " left-sided abdominal pain since 3 AM that day, starting 1/2 hour after eating tomato soup. He had nausea and + bilious, non-bloody vomiting, without any diarrhea. He denied any chest pain or shortness of breath. There was some mild left-sided pleuritic pain (history of old anterolateral left seventh rib fracture) , without any hemoptysis. He had a questionable low-grade fever (not documented as an inpatient), without any chills. He denied any symptoms of UTI or URI. 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 He denied any abdominal trauma, GERD, odynophagia, dysphagia, early satiety, hematemesis, melena, constipation, obstipation, tenesmus, or rectal bleeding. He denied any jaundice, dark urine, light stool, or pruritus. He has old tattoos. He denied any IVDA, transfusions, history of HIV, or viral hepatitis. The patient denied any history of DTs, withdrawal, confusion, or alcohol-related seizures. There is no family history of GI disease, GI malignancy, inherited pancreatitis, or inherited liver disease. *Please note, the patient has evidence of chronic pancreatitis, based on previous findings on surveillance CT chest without contrast (smoker), last done 04/23/2016: moderate COPD, stable benign bilateral pulmonary nodules, no adenopathy, mild coronary artery calcifications, bilateral adrenal hypertrophy and *mild chronic calcific pancreatitis- unchanged, small hiatal hernia, mild S- shaped thoracic scoliosis, DJD, old healed fracture anterolateral left seventh rib). *Please note, the patient has been on outpatient Atorvastatin & Lisinopril x years (*doubt that these are causative regarding pancreatitis). He denied any new medications. He denied using any sulfa medications or thiazides. He denies any rashes, acute arthralgias (aside from DJD), or viral prodrome. *As an aside, the patient has a history of colon polyps. 06/16/2008: Colonoscopy to [facility] per Dr. Michael Bazzi- hot snare polypectomy of 5 mm benign pedunculated TA. (*He is overdue for follow-up surveillance colonoscopy advised for 06/2013). Upon arrival, BP 183/100, P 115, R 18, T 98.3, O2 sat RA 97%. He was given IV NS, Zofran, Dilaudid, Lisinopril, & Tylenol in the ER. He was admitted to General Medicine. 07/08/2016: Admission labs- WBC 12.6 (93% gran, 12 gran Ab), H/H 16.4/46.5, MCV 99.8, normal RDW, PLT 150K; glucose 109, BUN/Cr 12/0.7, GFR > 60, Na 134, K 4.1, HCO3 24, AG 13, normal amylase 93, minimally elevated lipase 425 (*although serum lipemic), Ca 8.6, albumin 4.0, globulin 3.4, TBil 1.3, alk phos 141, AST 269, ALT 196, troponin < 0.01, TChol 283, *TG 2470, HDL 25; U/A- clear, yellow, > 1.030, 6.0, 1-3 WBC, packed mucous threads. 15+ ketone, sm Hgb, tr prot; neg nitrite, neg esterase. No [EtOH], UTox, or coags were sent on admission. 07/09/2016: WBC 8.9, H/H 15.5/45.4, MCV 100.9, PLT 119: BUN/Cr 6/0.6, GFR > 60. Na 133, K 3.8, HCO3 23, AG 11, albumin 3.4, globulin 2.9, TBil 1.5, DBil 0.5, alk phos 119, AST 137, ALT 140 07/08/2016: EKG- ST @ 109, normal axis, LAE, QS V1-V3, NSST inferiorly. 07/08/2016: CT ABD & PELVIS W IV CONTRAST (*personally reviewed by myself with Dr. Cody Hernández, of [facility])- 1. Diffuse peripancreatic inflammatory changes surrounding the distal pancreatic tail. This may represent focal pancreatitis of the distal pancreatic tail. Correlate with pancreatic enzyme levels. 2. Coarse calcifications scattered throughout the pancreas, indicative of sequela of chronic pancreatitis. 3. Focal heterogeneity within the distal pancreatic tail. This finding is entirely nonspecific and may represent edematous changes within the distal pancreatic tail given findings suggestive of acute focal pancreatitis. However, an underlying mass within this region cannot be entirely excluded. A nonemergent multiphase contrast-enhanced CT or MRI of the abdomen may be obtained for further characterization (pancreatic mass protocol). 4. Diffuse hepatic steatosis. Of note, there is a 1.4 x 1.4 cm enhancing vascullar lesion within the hepatic dome, incompletely characterized on this examination. This lesion may be further characterized on multiphase contrast- enhanced CT or MRI of the abdomen (liver mass protocol). The contrast-enhanced MRI of the abdomen would be helpful in evaluating both the distal pancreatic tail as well as the liver, barring any contraindications to MRI. 5. Normal gallbladder without cholecystitis or cholelithiasis. 6. 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 Allergies/Medications Allergies: Coded Allergies: NO KNOWN ALLERGIES (UNKNOWN 07/09/16) Home Med List: Aspirin (Aspirin*) 81 MG TAB.CHEW 1 TAB PO DAILY CARDIAC (Reported) Atorvastatin Calcium 20 MG TABLET 1 TAB PO DAILY HPL (Reported) Escitalopram Oxalate 20 MG TABLET 1 TAB PO DAILY MENTAL HEALTH (Reported) Lisinopril 40 MG TABLET 1 TAB PO DAILY HTN (Reported) Trazodone HCl 50 MG TABLET 1 TAB PO QPM INSOMNIA (Reported) Current Medications: Current Medications Sig/Sara Start time Last Medication Dose Route Stop Time Status Admin Aspirin 81 MG DAILY 07/09 1000 AC 07/09 PO 0926 Atorvastatin Calcium 20 MG 1700 07/09 1700 AC 07/09 PO 0934 Enoxaparin Sodium 40 MG DAILY 07/09 1000 AC 07/09 SC 0932 Escitalopram Oxalate 20 MG DAILY 07/09 1000 AC 07/09 PO 0926 Gemfibrozil 600 MG BID 07/08 2200 AC 07/09 PO 0927 Hydromorphone HCl 1 MG ONCE ONE 07/09 0800 DC 07/09 IV 07/09 0801 0803 Hydromorphone HCl 1 MG Q4P PRN 07/09 0800 AC 07/09 IV 1354 Hydromorphone HCl 0 .STK-MED ONE 07/08 1829 DC .ROUTE Hydromorphone HCl 0.6 MG Q4P PRN 07/08 1815 DC 07/09 IV 0614 Hydromorphone HCl 0.5 MG ONCE ONE 07/08 1615 DC 07/08 IV 07/08 1616 1620 Hydromorphone HCl 0 .STK-MED ONE 07/08 1613 DC .ROUTE Lisinopril 40 MG DAILY 07/09 1000 AC 07/09 PO 0926 Lorazepam 0 Q1P PRN 07/09 0030 IV Nicotine 21 MG DAILY 07/08 2145 07/09 TOP 0927 Ondansetron HCl 0 .STK-MED ONE 07/08 1831 DC .ROUTE Ondansetron HCl 4 MG Q6 07/08 1810 DC 07/09 IV 08 1201 0932 Patient Medication 1 UNIT 1700 07/09 1700 Teaching ED 07/09 1701 Patient Medication 1 UNIT ONE NR 07/09 0800 [facility] ED 07/09 1400 Patient Medication 1 UNIT ONE NR 07/09 0800 NM Teaching ED 07/09 1400 Patient Medication 1 UNIT ONE NR 07/08 1830 NM Teaching ED 07/08 1900 Sodium Chloride 1,000 ML Q13H 07/09 0615 07/09 IV 0614 Sodium Chloride 1,000 ML ONCE ONE 07/09 0045 DC 07/09 IV 07/09 0544 0108 Sodium Chloride 1,000 ML ONCE ONE 07/08 1830 DC 07/08 IV 07/08 2329 1834 Tramadol HCl 50 MG ONCE ONE 07/08 2145 DC 07/08 PO 07/08 2146 2358 Trazodone HCl 50 MG QPM 07/08 2245 AC 07/08 PO 2313 Past History Travel History Traveled to [place] past 21 day No Medical History Blood Transfusion Hx: No Neurological: NONE EENT: FUCHS DISEASE, Corneal transplant OD Cardiovascular: hypertension, hyperlipidemia Respiratory: COPD Gastrointestinal: alcoholic hepatitis (& fatty liver), pancreatitis (chronic calcifications on CT), hx colon adenoma Hepatic: fatty liver/abnl LFTs Renal: NONE Musculoskeletal: rheumatoid arthritis, DEGENTIVE DISC DX Psychiatric: anxiety, depression Endocrine: HLD, sena TG Blood Disorders: NONE Cancer(s): NONE 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 , Age 82; Cause: Mesothelioma. FATHER (smoker). , Age 58; Cause: Lung cancer. Relation not specified for: Endogenous hypertriglyceridemia Psychosocial History Where Do You Live? Home Who Do You Live With? spouse Services at Home: None Primary Language: Amharic Smoking Status: Current Everyday Smoker ETOH Use: heavy use Illicit Drug Use: denies illicit drug use Living Will? yes Power of Plastic Eye Technician/HCP? no Other Social History: . Lives with . 1 son- 33, [employer] (in [employer], in [facility]). > 46 pk yr cigarette smoker, recently decereased to 1/2 ppd. Heavy EtOH (? amount), recently cut back to "a few beers & a shot" every 2 days. Denies illicit drug use or IVDA. Old tattoos. Retired [employer] in 2013, "due to corneal disease & DJD." Functional Ability ADLs Independent: dressing, eating, toileting, bathing. Ambulation: independent IADLs Independent: shopping, housework, finances, food prep, telephone, transportation , medication admin. Employment History Employment: Retired Profession/Employer: [employer]; retired 2013 Review of Systems Review of Systems: Full 14 point review of systems otherwise noncontributory, and as above. Review of Systems Constitutional: Reports: fever (at home), unexplained weight loss (6 lbs past few weeks). Denies: chills, diaphoresis, malaise, weakness. EENTM: Reports: visual changes (hx corneal transplant OD). Denies: blurred vision, double vision, eye pain, eye drainage, eye tearing, icterus, ear discharge, ear pain, ear redness, hearing changes, nasal congestion, epistaxis, nasal pain, throat pain, throat swelling, mouth pain, tooth pain. Cardiovascular: Denies: chest pain, edema, orthopena, palpitations, peripheral edema, syncope. Respiratory: Denies: cough, hemoptysis, orthopnea, short of breath, sputum production, stridor, wheezing. GI: Reports: abdominal pain, nausea, vomiting (bilious). Denies: bloating, constipation, diarrhea, distention, bowel incontinence, melena, bloody stool, changes in stool, steatorrhea. Genitourinary: Denies: discharge, dysuria, frequency, hematuria, hesitation, nocturia, pain, urgency. Musculoskeletal: Reports: neck pain (fusion C4-6). Denies: back pain, gout, joint swelling, muscle pain, muscle stiffness. Skin: Denies: cysts, change in skin color, change in hair/nails, dryness, erythema, jaundice, lesions, lymphangitis, lumps, moles, rash. Neurological/Psychological: Reports: anxiety, depressed, emotional problems. Denies: ataxia, cognitive dysfunction, confusion, dementia, headache, numbness, paresthesia, pre-existing deficit, petit mal seizures, tingling, tremors, tonic-clonic seizures, unable to move lower ext, unable to move upper ext, weakness. Hematologic/Endocrine: Denies: bruising, bleeding, polyuria, polydipsia. Immunologic/Allergic: Denies: splenectomy, HIV/AIDS, lymphadenopathy. All Other Systems: Reviewed and Negative Exam & Diagnostic Data Vital Signs and I&O Vital Signs Date Time Temp Pulse Resp B/P B/P Pulse O2 O2 Flow FiO2 Mean Ox Delivery Rate 07/09 0859 97.8 108 20 135/90 97 Room Air 07/09 0926 140/90 07/09 0738 103 160/98 07/09 0738 103 160/98 07/09 0657 99.9 104 16 166/100 98 Room Air 07/09 0600 99.9 98 16 160/98 07/09 0309 98 162/98 07/09 0210 98.8 98 16 178/104 93 Room Air 07/09 0000 98.2 102 16 162/100 07/08 2233 98.5 102 16 164/100 93 07/08 1938 97.6 109 20 140/80 93 Room Air 07/08 1835 96.9 108 20 160/90 94 Room Air 07/08 1545 97.5 107 18 140/93 91 07/08 1432 98.4 110 20 184/78 07/08 1411 98.4 110 20 184/78 94 Room Air Intake & Output 07/09 0400 07/08 0400 07/07 1600 07/07 0400 Intake Total 1600 600 Output Total 400 250 Balance 1200 350 Intake, IV 1600 600 Number 0 Bowel Movements Output, Urine 400 250 Patient 182 lb 184 lb Weight Weight Reported by Patient Measurement Method Physical Exam: Well-developed, well-nourished, male, non-toxic appearing, in no apparent distress. Sclera anicteric. Conjunctiva pink. Oropharynx clear. No oral thrush. No aphthous ulcers. There is no adenopathy, thyromegaly, or JVD. Decreased ROM C -spine postop. No peripheral stigmata of inflammatory bowel disease or chronic liver disease on exam. No spiders on the anterior chest wall. No gynecomastia. No CVA tenderness. Mild T-spine scoliosis. Lungs: clear to A&P, without wheezing , rales, or rhonchi. Heart exam: regular rate rhythm, S1 and S2, without any murmur. Ribs: NT. Abdominal exam: normal bowel sounds, mildly distended belly, currently nontender, without guarding or rebound. No mass. Liver approximately 14 cm by percussion. No splenomegaly. Negative Marcus sign. No fluid shift. No pulsatile mass. No epigastric bruit. Digital rectal exam: deferred by patient. Extremities: without C, C, or E. No palpable cords. No palmar erythema. No Dupuytren's contractures. Distal pulses 2+ bilaterally. DTRs 2+ bilaterally. Alert and oriented x 3. No tremor. No asterixis. No meningeal signs. Results Pertinent Lab Results: Laboratory Tests 07/09 07/08 0625 1342 Chemistry Sodium (137 - 145 mmol/L) 133 L Potassium (3.5 - 5.1 mmol/L) 3.8 Chloride (98 - 107 mmol/L) 99 Carbon Dioxide (22 - 30 mmol/L) 23 Anion Gap (5 - 16) 11 BUN (9 - 20 mg/dL) 6 L Creatinine (0.7 - 1.2 mg/dL) 0.6 L Estimated GFR (>60 ml/min) > 60 BUN/Creatinine Ratio (7 - 25 %) 10.0 Total Bilirubin (0.2 - 1.3 mg/dL) 1.5 H Direct Bilirubin (< 0.4 mg/dL) 0.5 H AST (17 - 59 U/L) 137 H ALT (21 - 72 U/L) 140 H Alkaline Phosphatase (< 127 U/L) 119 Total Protein (6.3 - 8.2 g/dL) 6.3 Albumin (3.5 - 5.0 g/dL) 3.4 L Hematology CBC w Diff NO MAN DIFF REQ WBC (4.8 - 10.8 /CUMM) 8.9 RBC (4.70 - 6.10 /CUMM) 4.50 L Hgb (14.0 - 18.0 G/DL) 15.5 Hct (42 - 52 %) 45.4 MCV (80.0 - 94.0 FL) 100.9 H MCH (27.0 - 31.0 PG) 34.4 H RDW (11.5 - 14.5 %) 14.3 Plt Count (130 - 400 /CUMM) 119 L MPV (7.4 - 10.4 FL) 8.3 Gran % (42.2 - 75.2 %) 86.3 H Lymphocytes % (20.5 - 51.1 %) 7.0 L Monocytes % (1.7 - 9.3 %) 6.3 Eosinophils % (0 - 5 %) 0.4 Basophils % (0.0 - 2.0 %) 0 L Absolute Granulocytes (1.4 - 6.5 /CUMM) 7.7 H Absolute Lymphocytes (1.2 - 3.4 /CUMM) 0.6 L Absolute Monocytes (0.10 - 0.60 /CUMM) 0.6 Absolute Eosinophils (0.0 - 0.7 /CUMM) 0 Absolute Basophils (0.0 - 0.2 /CUMM) 0 PUBS MCHC (33.0 - 37.0 G/DL) 34.1 Urines Urine Color (YEL,AMB,STR) YEL Urine Clarity (CLEAR) CLEAR Urine pH (5.0 - 8.0) 6.0 Ur Specific Burton (1.001 - 1.035) >= 1.030 Urine Protein (NEG,<30 MG/DL) TRACE H Urine Ketones (NEG) 15 H Urine Nitrite (NEG) NEG Urine Bilirubin (NEG) NEG Urine Urobilinogen (0.1 - 1.0 EU/dl) 0.2 Ur Leukocyte Esterase (NEG) NEG Ur Microscopic SEDIMENT EXAMINED Urine RBC (0 - 5 /HPF) 1-3 Urine Mucus (FEW,NONE) PACKD H Urine Hemoglobin (NEG) SMALL H Urine Glucose (N MG/DL) NEG 07/08 07/08 1330 1317 Chemistry Sodium (137 - 145 mmol/L) 134 L Potassium (3.5 - 5.1 mmol/L) 4.1 Chloride (98 - 107 mmol/L) 96 L Carbon Dioxide (22 - 30 mmol/L) 24 Anion Gap (5 - 16) 13 BUN (9 - 20 mg/dL) 12 Creatinine (0.7 - 1.2 mg/dL) 0.7 Estimated GFR (>60 ml/min) > 60 BUN/Creatinine Ratio (7 - 25 %) 17.1 Glucose (65 - 99 mg/dL) 109 H Calcium (8.4 - 10.2 mg/dL) 8.6 Total Bilirubin (0.2 - 1.3 mg/dL) 1.3 AST (17 - 59 U/L) 269 H ALT (21 - 72 U/L) 196 H Alkaline Phosphatase (< 127 U/L) 141 H Troponin I (<0.11 ng/ml) < 0.01 Cancelled Total Protein (6.3 - 8.2 g/dL) 7.4 Albumin (3.5 - 5.0 g/dL) 4.0 Globulin (1.9 - 4.2 gm/dL) 3.4 Albumin/Globulin Ratio (1.1 - 2.2 %) 1.2 Triglycerides (<150 mg/dL) 2470 H Cholesterol (< 200 MG/DL) 283 H LDL Cholesterol Direct (<100 mg/dL) < 30.00 LDL Cholesterol, Calc (65 - 129 mg/dL) ND HDL Cholesterol (40 - 60 mg/dL) 25 L Cholesterol/HDL Ratio (0.00 - 4.88 %) 11 H Amylase (30 - 110 U/L) 93 Lipase (23 - 300 U/L) 425 H Hematology CBC w Diff NO MAN DIFF REQ WBC (4.8 - 10.8 /CUMM) 12.6 H RBC (4.70 - 6.10 /CUMM) 4.66 L Hgb (14.0 - 18.0 G/DL) 16.4 Hct (42 - 52 %) 46.5 MCV (80.0 - 94.0 FL) 99.8 H MCH (27.0 - 31.0 PG) 35.1 H RDW (11.5 - 14.5 %) 13.5 Plt Count (130 - 400 /CUMM) 150 MPV (7.4 - 10.4 FL) 7.9 Gran % (42.2 - 75.2 %) 93.3 H Lymphocytes % (20.5 - 51.1 %) 2.8 L Monocytes % (1.7 - 9.3 %) 3.6 Eosinophils % (0 - 5 %) 0.2 Basophils % (0.0 - 2.0 %) 0.1 Absolute Granulocytes (1.4 - 6.5 /CUMM) 11.7 H Absolute Lymphocytes (1.2 - 3.4 /CUMM) 0.4 L Absolute Monocytes (0.10 - 0.60 /CUMM) 0.5 Absolute Eosinophils (0.0 - 0.7 /CUMM) 0 Absolute Basophils (0.0 - 0.2 /CUMM) 0 PUBS MCHC (33.0 - 37.0 G/DL) 35.2 Imaging/Other Studies: 07/08/2016: EKG- ST @ 109, normal axis, LAE, QS V1-V3, NSST inferiorly. 07/08/2016: CT ABD & PELVIS W IV CONTRAST (*personally reviewed by myself with Dr. Cody Hernández, of [facility])- 1. Diffuse peripancreatic inflammatory changes surrounding the distal pancreatic tail. This may represent focal pancreatitis of the distal pancreatic tail. Correlate with pancreatic enzyme levels. 2. Coarse calcifications scattered throughout the pancreas, indicative of sequela of chronic pancreatitis. 3. Focal heterogeneity within the distal pancreatic tail. This finding is entirely nonspecific and may represent edematous changes within the distal pancreatic tail given findings suggestive of acute focal pancreatitis. However, an underlying mass within this region cannot be entirely excluded. A nonemergent multiphase contrast-enhanced CT or MRI of the abdomen may be obtained for further characterization (pancreatic mass protocol). 4. Diffuse hepatic steatosis. Of note, there is a 1.4 x 1.4 cm enhancing vascullar lesion within the hepatic dome, incompletely characterized on this examination. This lesion may be further characterized on multiphase contrast- enhanced CT or MRI of the abdomen (liver mass protocol). The contrast-enhanced MRI of the abdomen would be helpful in evaluating both the distal pancreatic tail as well as the liver, barring any contraindications to MRI. 5. Normal gallbladder without cholecystitis or cholelithiasis. 6. 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 He had nausea and + bilious, non-bloody vomiting, without any diarrhea. He denied any chest pain or shortness of breath. There was some mild left-sided pleuritic pain (history of old anterolateral left seventh rib fracture) , without any hemoptysis. He had a questionable low-grade fever (not documented as an inpatient), without any chills. He denied any symptoms of UTI or URI. 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 He denied any abdominal trauma, GERD, odynophagia, dysphagia, early satiety, hematemesis, melena, constipation, obstipation, tenesmus, or rectal bleeding. He denied any jaundice, dark urine, light stool, or pruritus. He has old tattoos. He denied any IVDA, transfusions, history of HIV, or viral hepatitis. The patient denied any history of DTs, withdrawal, confusion, or alcohol-related seizures. There is no family history of GI disease, GI malignancy, inherited pancreatitis, or inherited liver disease. *Please note, the patient has evidence of chronic pancreatitis, based on previous findings on surveillance CT chest without contrast (smoker), last done 04/23/2016: moderate COPD, stable benign bilateral pulmonary nodules, no adenopathy, mild coronary artery calcifications, bilateral adrenal hypertrophy and *mild chronic calcific pancreatitis- unchanged, small hiatal hernia, mild S- shaped thoracic scoliosis, DJD, old healed fracture anterolateral left seventh rib). *Please note, the patient has been on outpatient Atorvastatin & Lisinopril x years (*doubt that these are causative regarding pancreatitis). He denied any new medications. He denied using any sulfa medications or thiazides. He denies any rashes, acute arthralgias (aside from DJD), or viral prodrome. *As an aside, the patient has a history of colon polyps. 06/16/2008: Colonoscopy to [facility] per Dr. Michael Bazzi- hot snare polypectomy of 5 mm benign pedunculated TA. (*He is overdue for follow-up surveillance colonoscopy advised for 06/2013). Upon arrival, BP 183/100, P 115, R 18, T 98.3, O2 sat RA 97%. He was given IV NS, Zofran, Dilaudid, Lisinopril, & Tylenol in the ER. He was admitted to General Medicine. 07/08/2016: Admission labs- WBC 12.6 (93% gran, 12 gran Ab), H/H 16.4/46.5, MCV 99.8, normal RDW, PLT 150K; glucose 109, BUN/Cr 12/0.7, GFR > 60, Na 134, K 4.1, HCO3 24, AG 13, normal amylase 93, minimally elevated lipase 425 (*although serum lipemic), Ca 8.6, albumin 4.0, globulin 3.4, TBil 1.3, alk phos 141, AST 269, ALT 196, troponin < 0.01, TChol 283, *TG 2470, HDL 25; U/A- clear, yellow, > 1.030, 6.0, 1-3 WBC, packed mucous threads. 15+ ketone, sm Hgb, tr prot; neg nitrite, neg esterase. No [EtOH], UTox, or coags were sent on admission. 07/09/2016: WBC 8.9, H/H 15.5/45.4, MCV 100.9, PLT 119: BUN/Cr 6/0.6, GFR > 60. Na 133, K 3.8, HCO3 23, AG 11, albumin 3.4, globulin 2.9, TBil 1.5, DBil 0.5, alk phos 119, AST 137, ALT 140 07/08/2016: EKG- ST @ 109, normal axis, LAE, QS V1-V3, NSST inferiorly. 07/08/2016: CT ABD & PELVIS W IV CONTRAST (*personally reviewed by myself with Dr. Cody Hernández, of [facility])- 1. Diffuse peripancreatic inflammatory changes surrounding the distal pancreatic tail. This may represent focal pancreatitis of the distal pancreatic tail. Correlate with pancreatic enzyme levels. 2. Coarse calcifications scattered throughout the pancreas, indicative of sequela of chronic pancreatitis. 3. Focal heterogeneity within the distal pancreatic tail. This finding is entirely nonspecific and may represent edematous changes within the distal pancreatic tail given findings suggestive of acute focal pancreatitis. However, an underlying mass within this region cannot be entirely excluded. A nonemergent multiphase contrast-enhanced CT or MRI of the abdomen may be obtained for further characterization (pancreatic mass protocol). 4. Diffuse hepatic steatosis. Of note, there is a 1.4 x 1.4 cm enhancing vascullar lesion within the hepatic dome, incompletely characterized on this examination. This lesion may be further characterized on multiphase contrast- enhanced CT or MRI of the abdomen (liver mass protocol). The contrast-enhanced MRI of the abdomen would be helpful in evaluating both the distal pancreatic tail as well as the liver, barring any contraindications to MRI. 5. Normal gallbladder without cholecystitis or cholelithiasis. 6. 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 *Most likely, the pancreatitis is from his markedly elevated triglycerides (2470 ), in addition to his EtOH and cigarette smoking, which are additional risk factors. He appears to have chronic pancreatitis on previous imaging studies, with scattered pancreatic calcifications. I doubt that his Lisinopril and/or Atorvastatin, which he has been on for years, are causative. The hypervascular lesion at the dome of the liver on CT is noted. This could be a hemangioma. I doubt this is a hepatoma, but this should be excluded. The patient has no signs or symptoms of cirrhosis radiographically, clinically, or by labs, aside from borderline low platelet count. There is evidence of fatty liver, which is probably the main culprit for his elevated transaminases, along with possible alcoholic hepatitis on admission, however other entities should be excluded. He appears clinically stable, and is thirsty. Incidentally, he is overdue for follow-up surveillance colonoscopy regarding his history of colon adenomas, which was due back in 06/2013. *On admission, 1 grave signs by Francis criteria (elevated age), however no LDH was sent. *On admission, he had 1 grave sign by BiSAP criteria (elevated age), however no CXR was done to rule out pleural effusion. *SUGGEST: *NPO for MRI abdomen with & without contrast today, to assess bile ducts, pancreatic duct, gallbladder, vascular lesion at dome of liver, and pancreatic parenchyma, especially the pancreatic tail. *CXR (r/o pleural effusion). *If MRI stable, trial of clears po. *IV Lactated Ringer's at 200 cc/hr for now. Strict I's and O's. *Watch for hemoconcentration (i.e.- rising BUN/HCT), despite IVF, which would be a poor prognostic sign. Supplemental oxygen as needed. DVT prophylaxis. *Check CRP for prognostic purposes. *Add LDH to admit labs. *Check Hep A Ab, Hep Bs Ag, Hep C Ab, Hep B core Ab, HIV, Fe, TIBC, ferritin, YOUSIF, AMA, PT with INR. *Consider checking AFP, regarding liver lesion at dome (would defer CEA level, as the patient is a smoker & this could be falsely elevated; similarly, would defer CA 19-9 level for now). Zofran. Analgesics as needed. * Advise Endocrine consult regarding markedly elevated TG (needs Lopid, etc). * Eventual Vitamin E 800 IU po daily for fatty liver, plus risk factor modification, to include strict control of BP, lipids, blood sugar, body weight, & EtOH cessation. D/C cigarettes. Serial CIWA. DT protocol. *Consider checking B12, RBC folate, MMA & TSHR with elevated MCV. Advise thiamine, folate, MVI. * Consider checking a fecal elastase (r/o pancreatic insufficiency with chronic pancreatic calcifications), although the patient has no diarrhea. If the patient tolerates clears po, may gradually advance a low fat, 2g Na diet over the next 1 -2 days. *The patient has our office number. *He was made aware that he should see Dr. Michael Bazzi for outpatient GI follow-up, for consideration of outpatient EUS (check pancreatic tail) & for surveillance colonoscopy regarding history of colon adenomas, for which he is overdue. *The above was discussed with the patient, the patient's sister, Liza, at the bedside (as per patient request), & the medical house staff in detail on 07/09/2016. *Please call if further inpatient GI input is needed. Problem List: 1. Abdominal pain 2. Pancreatitis 3. Nausea & vomiting 4. Fatty liver 5. Abnormal LFTs 6. History of adenomatous polyp of colon 7. Hypertriglyceridemia Copies To: [facility] Consult Acknowledgment - Thank you for your consult request.
--- NOTE | 2016-07-09 13:21 | Cons- Endocrinology ---
General Information and HPI Consulting Request Date of Consult: 07/09/16 Requested By: medical team Reason for Consult: evaluation and management of severe hypertriglyceridemia. Source of Information: patient, old records Exam Limitations: no limitations History of Present Illness: Patient is a 60-year-old gentleman with no significant past medical history presents to ED with sudden onset of epigastric pain associated with multiple episodes of nonbloody vomitus. Patient admits to excessive alcohol use several years ago, but currently drinks a couple beers every other day. However, the night before this episode, he was having several drinks in a constitution party. In ER, blood work showed TRIG 2470, lipase 425, CHOL 283, HDL 25 and LDL < 30, AST 269 and ALT 196, random glucose level was 109. He has been kept NPO and is receiving NS. at 125 ml/hour. In addition, he was put on Atorvastatin 20 mg daily and Gemfibrozil 600 mg twice a day. Allergies/Medications Allergies: Coded Allergies: NO KNOWN ALLERGIES (UNKNOWN 07/09/16) Home Med List: Aspirin (Aspirin*) 81 MG TAB.CHEW 1 TAB PO DAILY CARDIAC (Reported) Atorvastatin Calcium 20 MG TABLET 1 TAB PO DAILY HPL (Reported) Escitalopram Oxalate 20 MG TABLET 1 TAB PO DAILY MENTAL HEALTH (Reported) Lisinopril 40 MG TABLET 1 TAB PO DAILY HTN (Reported) Trazodone HCl 50 MG TABLET 1 TAB PO QPM INSOMNIA (Reported) Review of Systems Review of Systems Constitutional: Reports: see HPI. Cardiovascular: Denies: chest pain, palpitations. Respiratory: Denies: short of breath. GI: Reports: abdominal pain. Genitourinary: Denies: dysuria. Hematologic/Endocrine: Denies: polyuria, polydipsia. Past History Travel History Traveled to [place] past 21 day No Medical History Neurological: NONE EENT: FUCHS DISEASE Cardiovascular: hypertension, hyperlipidemia Respiratory: NONE Gastrointestinal: NONE Hepatic: NONE Renal: NONE Musculoskeletal: rheumatoid arthritis, DEGENTIVE DISC DX Psychiatric: anxiety Endocrine: NONE Blood Disorders: NONE Cancer(s): NONE ENTOMOLOGY PROFESSOR/Reproductive: NONE Surgical History Surgical History: spinal fusion (c4-6) Family History Relations & Conditions If Any: Relation not specified for: Endogenous hypertriglyceridemia Psychosocial History Where Do You Live? Home Smoking Status: Current Everyday Smoker ETOH Use: occasional use Illicit Drug Use: denies illicit drug use Exam & Diagnostic Data Last 24 Hrs of Vital Signs/I&O Vital Signs Date Time Temp Pulse Resp B/P B/P Pulse O2 O2 Flow FiO2 Mean Ox Delivery Rate 07/09 0959 97.8 108 20 135/90 97 Room Air 07/09 0926 140/90 07/09 0738 103 160/98 07/09 0738 103 160/98 / 0657 99.9 104 16 166/100 98 Room Air 07/09 0600 99.9 98 16 160/98 / 0309 98 162/98 / 0210 98.8 98 16 178/104 93 Room Air 05/08 0000 98.2 102 16 162/100 05/ 2233 98.5 102 16 164/100 93 05/ 1938 97.6 109 20 140/80 93 Room Air 07/08 1835 96.9 108 20 160/90 94 Room Air 07/08 1545 97.5 107 18 140/93 91 05/07 1432 98.4 110 20 184/78 /07 1411 98.4 110 20 184/78 94 Room Air Intake & Output 07/09 1600 07/09 0800 07/09 0000 Intake Total 1600 600 Output Total 650 Balance 950 600 Intake, IV 1600 600 Number 0 Bowel Movements Output, Urine 650 Patient 182 lb Weight Physical Exam General Appearance: no apparent distress Neck: normal inspection Respiratory: lungs clear Cardiovascular: tachycardia (mild) Gastrointestinal: tenderness (at epigastric area) Extremities: no edema Labs/Raf Results: Laboratory Tests 07/0925 1342 Chemistry Sodium (137 - 145 mmol/L) 133 L Potassium (3.5 - 5.1 mmol/L) 3.8 Chloride (98 - 107 mmol/L) 99 Carbon Dioxide (22 - 30 mmol/L) 23 Anion Gap (5 - 16) 11 BUN (9 - 20 mg/dL) 6 L Creatinine (0.7 - 1.2 mg/dL) 0.6 L Estimated GFR (>60 ml/min) > 60 BUN/Creatinine Ratio (7 - 25 %) 10.0 Total Bilirubin (0.2 - 1.3 mg/dL) 1.5 H Direct Bilirubin (< 0.4 mg/dL) 0.5 H AST (17 - 59 U/L) 137 H ALT (21 - 72 U/L) 140 H Alkaline Phosphatase (< 127 U/L) 119 Total Protein (6.3 - 8.2 g/dL) 6.3 Albumin (3.5 - 5.0 g/dL) 3.4 L Hematology CBC w Diff NO MAN DIFF REQ WBC (4.8 - 10.8 /CUMM) 8.9 RBC (4.70 - 6.10 /CUMM) 4.50 L Hgb (14.0 - 18.0 G/DL) 15.5 Hct (42 - 52 %) 45.4 MCV (80.0 - 94.0 FL) 100.9 H MCH (27.0 - 31.0 PG) 34.4 H RDW (11.5 - 14.5 %) 14.3 Plt Count (130 - 400 /CUMM) 119 L MPV (7.4 - 10.4 FL) 8.3 Gran % (42.2 - 75.2 %) 86.3 H Lymphocytes % (20.5 - 51.1 %) 7.0 L Monocytes % (1.7 - 9.3 %) 6.3 Eosinophils % (0 - 5 %) 0.4 Basophils % (0.0 - 2.0 %) 0 L Absolute Granulocytes (1.4 - 6.5 /CUMM) 7.7 H Absolute Lymphocytes (1.2 - 3.4 /CUMM) 0.6 L Absolute Monocytes (0.10 - 0.60 /CUMM) 0.6 Absolute Eosinophils (0.0 - 0.7 /CUMM) 0 Absolute Basophils (0.0 - 0.2 /CUMM) 0 PUBS MCHC (33.0 - 37.0 G/DL) 34.1 Urines Urine Color (YEL,AMB,STR) YEL Urine Clarity (CLEAR) CLEAR Urine pH (5.0 - 8.0) 6.0 Ur Specific [place] (1.001 - 1.035) >= 1.030 Urine Protein (NEG,<30 MG/DL) TRACE H Urine Ketones (NEG) 15 H Urine Nitrite (NEG) NEG Urine Bilirubin (NEG) NEG Urine Urobilinogen (0.1 - 1.0 EU/dl) 0.2 Ur Leukocyte Esterase (NEG) NEG Ur Microscopic SEDIMENT EXAMINED Urine RBC (0 - 5 /HPF) 1-3 Urine Mucus (FEW,NONE) PACKD H Urine Hemoglobin (NEG) SMALL H Urine Glucose (N MG/DL) NEG 07/08 1330 Chemistry Sodium (137 - 145 mmol/L) 134 L Potassium (3.5 - 5.1 mmol/L) 4.1 Chloride (98 - 107 mmol/L) 96 L Carbon Dioxide (22 - 30 mmol/L) 24 Anion Gap (5 - 16) 13 BUN (9 - 20 mg/dL) 12 Creatinine (0.7 - 1.2 mg/dL) 0.7 Estimated GFR (>60 ml/min) > 60 BUN/Creatinine Ratio (7 - 25 %) 17.1 Glucose (65 - 99 mg/dL) 109 H Calcium (8.4 - 10.2 mg/dL) 8.6 Total Bilirubin (0.2 - 1.3 mg/dL) 1.3 AST (17 - 59 U/L) 269 H ALT (21 - 72 U/L) 196 H Alkaline Phosphatase (< 127 U/L) 141 H Troponin I (<0.11 ng/ml) < 0.01 Total Protein (6.3 - 8.2 g/dL) 7.4 Albumin (3.5 - 5.0 g/dL) 4.0 Globulin (1.9 - 4.2 gm/dL) 3.4 Albumin/Globulin Ratio (1.1 - 2.2 %) 1.2 Triglycerides (<150 mg/dL) 2470 H Cholesterol (< 200 MG/DL) 283 H LDL Cholesterol Direct (<100 mg/dL) < 30.00 LDL Cholesterol, Calc (65 - 129 mg/dL) ND HDL Cholesterol (40 - 60 mg/dL) 25 L Cholesterol/HDL Ratio (0.00 - 4.88 %) 11 H Amylase (30 - 110 U/L) 93 Lipase (23 - 300 U/L) 425 H Hematology CBC w Diff NO MAN DIFF REQ WBC (4.8 - 10.8 /CUMM) 12.6 H RBC (4.70 - 6.10 /CUMM) 4.66 L Hgb (14.0 - 18.0 G/DL) 16.4 Hct (42 - 52 %) 46.5 MCV (80.0 - 94.0 FL) 99.8 H MCH (27.0 - 31.0 PG) 35.1 H RDW (11.5 - 14.5 %) 13.5 Plt Count (130 - 400 /CUMM) 150 MPV (7.4 - 10.4 FL) 7.9 Gran % (42.2 - 75.2 %) 93.3 H Lymphocytes % (20.5 - 51.1 %) 2.8 L Monocytes % (1.7 - 9.3 %) 3.6 Eosinophils % (0 - 5 %) 0.2 Basophils % (0.0 - 2.0 %) 0.1 Absolute Granulocytes (1.4 - 6.5 /CUMM) 11.7 H Absolute Lymphocytes (1.2 - 3.4 /CUMM) 0.4 L Absolute Monocytes (0.10 - 0.60 /CUMM) 0.5 Absolute Eosinophils (0.0 - 0.7 /CUMM) 0 Absolute Basophils (0.0 - 0.2 /CUMM) 0 PUBS MCHC (33.0 - 37.0 G/DL) 35.2 Assessment/Plan Assessment/Plan Patient is a 60-year-old gentleman with no significant past medical history presents to ED with sudden onset of epigastric pain associated with multiple episodes of nonbloody vomitus. He was admitted for acute pancreatitis probably due to alcohol and his severe hypertriglyceridemia. 1. continue NPO and IVF; 2. monitor FSG once a day and check HbA1c; 3. continue current Aorvastatin 20 mg daily and Gemfibrozil 600 mg twice a day; 4. ETOH cessation; 5. monitor lipid panel, LFT and amylase, lipase tomorrow morning. will follow. Consult Acknowledgment - Thank you for your consult request.
--- NOTE | 2016-07-09 14:05 | NUR ---
PT TAKEN VIA WC TO MRI.
--- NOTE | 2016-07-09 15:30 | NUR ---
PT ARRIVED BACK TO FLOOR VIA WHEELCHAIR FROM MRI AT THIS TIME. PT REQUESTING NATHALIE DANIELE, STATING HE FEELS BETTER AND WANTS TO DRINK. PER RESIDENT, PT TO NOT DRINK AT THIS TIME AND REMAIN NPO. ICE CHIPS PROVIDED GIVEN OK FROM RESIDENT. PT SHOWERED AND IS RESTING IN BED. LR @ 200ML/HR INFUSING PER EMAR. LABS ACKNOWLEDGED AND DRAWN. PT EDUCATED ON PAIN REGIMEN SCHEDULE. OFFERS NO FURTHER COMPLAINTS. WILL CONTINUE TO MONITOR.
--- NOTE | 2016-07-09 16:03 | RADIOLOGY REPORT ---
EXAMINATION: XR PORTABLE CHEST CLINICAL INFORMATION: Question lung pathology; pancreatitis. COMPARISON: CT thorax dated and the chest radiographs dated 01/03/2006. TECHNIQUE: Portable frontal view of the chest was obtained. FINDINGS: No significant abnormality is noted involving the heart, lungs, mediastinum, bony thorax or soft tissues. A left pericardial fat pad is redemonstrated. Again, there are metallic fragments in the vicinity of the scapula. There is lower cervical orthopedic hardware. IMPRESSION: No active cardiopulmonary disease. There is no significant interim change.
[2016-07-09 16:52] LABS: PTT 31 SEC (25-37)
--- NOTE | 2016-07-09 17:50 | MRI REPORT ---
EXAMINATION: MR ABDOMEN WITHOUT AND WITH CONTRAST CLINICAL INFORMATION: Pancreatic and liver mass seen on CT scan. COMPARISON: CT scan of the abdomen and pelvis dated 07/08/2016. TECHNIQUE: An MRI scan of the abdomen was performed using multiple imaging sequences and imaging planes. As per the MRCP protocol, heavily T2-weighted 3-D high-resolution MRCP sequences were obtained in the coronal plane along with thin and thick slab coronal images and coronal MIP reconstructions. OptiMARK 17 mL intravenous was given and postcontrast enhanced dynamic evaluation was performed. FINDINGS: LIVER, GALLBLADDER, BILIARY TREE: Liver normal size. Diffuse hepatic steatosis is seen with drop in signal seen on opposed phase dual echo sequences. Corresponding to the CT scan findings, there are 4 hepatic lesion seen as follows: 1. A 1.1 cm diameter segment 7, T2 bright lesion in the hepatic dome (series 3, image 28; series 19, image 14), demonstrating intense enhancement on arterial phase sequences and persistent enhancement on delayed phases, consistent with a flash filling hemangioma. 2. A 1.2 x 1.3 cm central segment 8, T2 bright lesion near the IVC (series 3, image 11, series 19, image 21), demonstrating peripheral nodular enhancement with progressive filling in of contrast on delayed sequences, consistent with a hemangioma. 3. A 2.5 x 1.9 cm peripheral segment 8, T2 bright lesion (series 3, image 12; series 19, image 24), demonstrating discontinuous peripheral nodular enhancement with progressive filling in of contrast, consistent with a hemangioma. 4. A 2.7 x 1.7 cm central segment 4a, T2 bright mass (series 3, image 13; series 19, image 25), demonstrating peripheral nodular enhancement with progressive progressive filling in of contrast, consistent with a hemangioma. No suspicious hepatic mass seen. No intrahepatic or extrahepatic ductal dilatation. Hepatic and portal veins patent. The gallbladder is well distended and within normal limits. PANCREAS: The pancreas is diffusely mildly atrophic. The pancreatic head and body are normal with the pancreatic duct appearing normal in caliber, measuring 0.2 cm in diameter. Of note, a persistent accessory duct is seen, consistent with pancreas divisum. The pancreatic tail is slightly edematous and relatively enlarged compared to the remainder of the pancreas, and the pancreatic duct in the pancreatic tail is slightly irregular, indistinct and attenuated with minimal small side branch ectasia seen. Postcontrast, there is slight hypoenhancement of the distalmost pancreatic tail relative to the remainder of the pancreas. No abnormal enhancing pancreatic mass is seen. There is prominent peripancreatic edema and stranding seen with a small volume of free fluid in the anterior pararenal space, extending along the anterolateral left Gerota's fascia into the lateral conal fascia and inferiorly up to the level of the lower pole of the left kidney and extending medially around the stomach and up to the pancreatic head region. Findings are consistent with acute pancreatitis superimposed upon chronic calcific pancreatitis as seen on the CT scan. SPLEEN: Normal size and appearance. Splenic vein patent. ADRENAL GLANDS AND KIDNEYS: Adrenal glands bilaterally are hypertrophied without discrete mass seen. Kidneys bilaterally symmetric in size and function. Several bilateral subcentimeter sized renal cysts are noted. No suspicious focal mass or hydronephrosis. BOWEL LOOPS: Unremarkable. LYMPHOVASCULAR STRUCTURES: Abdominal aorta normal in caliber. No periaortic collections. No abdominal adenopathy or free fluid collection. BONES: Grade 1 anterolistheses of L5 on S1 is seen, unchanged from prior exam. The bilateral pars defects at L5 are not adequately evaluated on this exam. IMPRESSION: 1. Above findings are most consistent with acute pancreatitis in the setting of chronic calcific pancreatitis and an anatomic variant of pancreas divisum. Relative segmental hypoenhancement of the distalmost pancreatic tail raises the suspicion of necrotic pancreatitis. 2. Prominent peripancreatic edema is seen without walled off collection or abscess noted. 3. The liver demonstrates 4 benign masses with imaging characteristics consistent with hemangiomas. No suspicious liver mass seen. 4. Hepatic steatosis. 5. Small bilateral renal cysts. 6. Grade 1 spondylolisthesis of L5 on S1.
--- NOTE | 2016-07-09 21:52 | NUR ---
PTS PULSE 107. NO APPARENT DISTRESS, RESTING COMFORTABLY IN BED. MEDICATED PER EMAR FOR PAIN 09/10 IN L ABD. OFFERS NO COMPLAINTS. [employer]FING [employer] SUPERVISOR NOTIFIED OF PULSE. WILL CONTINUE TO MONITOR.
[2016-07-10 07:30] VITALS: BP 150/80
--- NOTE | 2016-07-10 08:09 | PN- Housestaff ---
Subjective Follow-up For: Acute pancreatitis Complaints: no complaints Subjective: Patient seen and examined this morning. He was sitting comfortably and complaining of improvement in his abdominal pain. He still radiate to 4. But he is able to tolerate clear liquids and we will advance it to full liquids for dinner. He remained afebrile with normal vital signs. Review of Systems Constitutional: Denies: chills, diaphoresis. EENTM: Denies: double vision, visual changes. Cardiovascular: Denies: edema, orthopena. Respiratory: Denies: short of breath. Gastrointestinal: Reports: abdominal pain. Genitourinary: Denies: dysuria, frequency. Musculoskeletal: Reports: joint pain, joint swelling. Objective Last 24 Hrs of Vital Signs/I&O Vital Signs Date Time Temp Pulse Resp B/P B/P Pulse O2 O2 Flow FiO2 Mean Ox Delivery Rate 07/10 1011 150/80 / 0730 97.9 111 20 150/80 92 Room Air / 2251 98.4 107 20 144/80 91 Room Air 07/09 1413 97.4 107 20 122/82 94 Room Air Intake & Output 07/10 1600 07/10 0800 05/ 0000 Intake Total 1600 1600 Output Total 300 100 Balance 1300 1500 Intake, IV 1600 1600 Output, Urine 300 100 Physical Exam General Appearance: Alert, Oriented X3, Cooperative, No Acute Distress Skin: No Significant Lesion Cardiovascular: Regular Rate, Normal S1, Normal S2, No Murmurs Lungs: Normal Air Movement Abdomen: Soft, No Tenderness Extremities: No Edema Current Medications: Current Medications Sig/Sara Start time Last Medication Dose Route Stop Time Status Admin Aspirin 81 MG DAILY 07/09 999 AC 07/10 PO 1011 Atorvastatin Calcium 20 MG 1700 07/09 1700 AC 07/09 PO 0934 Enoxaparin Sodium 40 MG DAILY 07/09 1000 AC 07/10 SC 1013 Escitalopram Oxalate 20 MG DAILY 07/09 1000 AC 07/10 PO 1011 Gemfibrozil 600 MG BID 07/08 2200 AC 07/10 PO 1011 Hydromorphone HCl 1 MG Q4P PRN 07/09 0800 AC 07/10 IV 1214 Lactated Ringer's 1,000 ML .Q10H 07/09 1600 AC 05 IV 0728 Lisinopril 40 MG DAILY 07/09 1000 AC 07/10 PO 1011 Lorazepam 0 Q1P PRN 07/09 0030 IV Nicotine 21 MG DAILY 07/08 2145 07/10 TOP 1011 Patient Medication 1 UNIT 1700 07/09 1700 NH 07/09 [facility] ED 07/09 1701 1620 Patient Medication 1 UNIT ONE NR 07/09 0800 [facility] ED 07/09 1400 Patient Medication 1 UNIT ONE NR 07/09 0800 [facility] ED 07/09 1400 Sodium Chloride 1,000 ML Q13H 07/09 0615 NH 07/09 IV 0614 Trazodone HCl 50 MG QPM 07/08 2245 07/09 PO 2109 Last 24 Hrs of Lab/Raf Results Last 24 Hrs of Labs/Mics: Laboratory Tests 07/10/16 0645: Anion Gap 4 L, Estimated GFR > 60, BUN/Creatinine Ratio 10.0, Total Bilirubin 1.4 H, Direct Bilirubin 0.5 H, AST 82 H, ALT 102 H, Alkaline Phosphatase 102 , Total Protein 5.5 L, Albumin 2.9 L, Triglycerides 573 H, Cholesterol 188, LDL Cholesterol Direct 46.44, LDL Cholesterol, Calc ND, HDL Cholesterol 28 L, Cholesterol/HDL Ratio 7 H, Amylase 48, Lipase 211, Vitamin B12 > 1000 H, CBC w Diff NO MAN DIFF REQ, RBC 3.77 L, MCV 102.1 H, MCH 34.5 H, RDW 14.3, MPV 8.5, Gran % 83.1 H, Lymphocytes % 7.7 L, Monocytes % 8.2, Eosinophils % 0.8, Basophils % 0.2, Absolute Granulocytes 7.1 H, Absolute Lymphocytes 0.7 L, Absolute Monocytes 0.7 H, Absolute Eosinophils 0.1, Absolute Basophils 0, PUBS MCHC 33.8 07/10/16 0600: Alpha Fetoprotein Pending 07/09/16 1615: PT 10.0, INR 0.95, APTT 31, Hepatitis A IgM Ab NONREACTIVE, Hep Bs Antigen NONREACTIVE, Hep B Core IgM Ab Conf NONREACTIVE, Hepatitis C Antibody NONREACTIVE Assessment/Plan Assessment: 60-year-old gentleman with sudden onset epigastric pain, associated with several episodes of nausea and vomiting, labs revealing of triglyceride level of 2400, with a CT evidence of pancreatitis, presentation suggestive of hypertriglyceridemia induced pancreatitis. Patient does have history of excess alcohol intake several years ago, current alcohol consumption is 2 beers every other day. Yesterday, patient had 3-4 alcoholic drinks. Acute pancreatitis: Likely secondary to hypertriglyceridemia, or alcohol use. Aggressive IV hydration with Ringer's lactate at 200 mils per hour. We will keep him nothing by mouth for now. * On CT abdomen focal heterogenicity within the distal pancreatic tail was noted as well as hepatic lesion was also noted. Patient was seen by gastroenterology . Consultation appreciated * MRI with and without gadolinium was Was done yesterday and findings were consistent with acute pancreatitis but there is chronic calcific pancreatitis and an anatomic variant of pancreas diivisum. Hypo-enhancement of the distalmost pancreatic tail raises the suspicion for necrotic pancreatitis but as patient is clinically doing fine and findings are very soft I already spoke with hat and cap drying room attendant and we will watch patient closely and at this point no surgical intervention is needed * YOUSIF, ferritin, ferrous, HIV, YOUSIF, AMA ordered and came back negative with normal ferritin and ferrous levels of 46 * Chest x-ray was notable * Zofran for nausea vomiting. Analgesia with Dilaudid when necessary, avoid Tylenol given transaminitis. Nothing by mouth. CT evidence of possible pancreatic mass and liver mass. GI consult. Started gemfibrozil and we will discharge patient on same dose and patient will follow up with PCP as outpatient Hypertriglyceridemia Endocrinology consultation was requested and appreciated His hemoglobin A1c is 5.6 We'll continue statins and gemfibrozil Insomnia: Continue trazodone(patient insists) by mouth, after Zofran. Continue all other meds tomorrow, as tolerated. DNR/DNI. Problem List: 1. Hypertriglyceridemia Pain Ratin Pain Location: Abdominal pain Pain Goal: Remain pain free Pain Plan: Hydromorphone Tomorrow's Labs & Rationales: CBC and basic electrolyte paneland lft Pain Goal: Remain pain free Pain Plan: Hydromorphone Tomorrow's Labs & Rationales: CBC and basic electrolyte paneland lft
[2016-07-10 08:11] LABS: ABSOLUTE BASOPHIL COUNT 0 /CUMM (0.0-0.2); ABSOLUTE EOSINOPHIL COUNT 0.1 /CUMM (0.0-0.7); ABSOLUTE LYMPH COUNT 0.7 /CUMM (1.2-3.4); ABSOLUTE MONOCYTE COUNT 0.7 /CUMM (0.10-0.60); RBC DISTRIBUTION WIDTH 14.3 % (11.5-14.5); WHITE BLOOD CELL COUNT 8.5 /CUMM (4.8-10.8)
[2016-07-10 09:02] LABS: ABSOLUTE GRANULOCYTE CT 7.1 /CUMM (1.4-6.5); BASOPHIL % 0.2 % (0.0-2.0); EOSINOPHIL % 0.8 % (0-5); GRANULOCYTE % 83.1 % (42.2-75.2); MEAN CORPUSCULAR HGB 34.5 PG (27.0-31.0); MEAN CORPUSCULAR HGB CONC 33.8 G/DL (33.0-37.0); MEAN CORPUSCULAR VOLUME 102.1 FL (80.0-94.0); MEAN PLATELET VOLUME 8.5 FL (7.4-10.4); PLATELET COUNT 111 /CUMM (130-400); RED BLOOD CELL CT 3.77 /CUMM (4.70-6.10)
--- NOTE | 2016-07-10 09:14 | PN- Att Addend ---
Attending Addendum Attending Brief Note Patient reports improved abdominal pain. General Appearance: Alert, No Acute Distress Skin: Grossly normal HEENT: PEERLA Neck: Supple, No JVD Cardiovascular: Regular Rate, Normal S1, Normal S2, No Murmurs Lungs: Clear to Auscultation, Normal Air Movement Abdomen: Positive bowel sounds, epigastric tenderness Neurological: Normal Speech, Strength at 5/5 X4 Ext, Cranial Nerves 3-12 NL, Reflexes 2+ Extremities: No Clubbing, No Cyanosis, No Edema Vascular: Normal Pulses Assessment 60-year-old with history of hypertriglyceridemia, hypertension and insomnia presenting with complaints of epigastric pain. He reports having a few drinks prior to admission. He does have history of alcohol dependence in the past and recently has cut down. CAT scan suggested mild pancreatitis with possible mass in the tail of pancreas and a 1.4 cm enhancing lesion in the liver. MRI suggested liver hemangiomas and possible pancreatic tail necrosis. Clinically patient has improved and has tolerated clear liquids this morning. There is no indication for surgical consult at this point. We will continue to observe on clear liquids for next 24 hours. Plan Decrease IV fluids to 100 mL per hour Informed GI about MRI findings Continue gemfibrozil Continue clear liquid diet Check vitamin B12 levels Continue current pain meds CIWA protocol with Ativan Current Medications Sig/Sara Start time Last Medication Dose Route Stop Time Status Admin Aspirin 81 MG DAILY 07/09 1000 AC / PO 0926 Atorvastatin Calcium 20 MG 1700 / 1700 AC 05/ PO 0934 Enoxaparin Sodium 40 MG DAILY / 1000 AC 07/09 SC 0932 Escitalopram Oxalate 20 MG DAILY 07/09 1000 AC / PO 0926 Gemfibrozil 600 MG BID 07/08 2200 AC 05/ PO 2109 Hydromorphone HCl 1 MG Q4P PRN 07/09 0800 AC /09 IV 0805 Lactated Ringer's 1,000 ML .Q10H /08 1600 AC 05/09 IV 0728 Lisinopril 40 MG DAILY / 1000 AC / PO 0926 Lorazepam 0 Q1P PRN / 0030 AC IV Nicotine 21 MG DAILY 07/08 2145 AC / TOP 0927 Ondansetron HCl 4 MG Q6 / 1810 DC 05/08 IV 05/08 1201 0932 Patient Medication 1 UNIT 1700 05/ 1700 DC 07/09 [facility] ED 07/09 1701 1620 Patient Medication 1 UNIT ONE NR 07/09 0800 [facility] ED 07/09 1400 Patient Medication 1 UNIT ONE NR 07/09 0800 [facility] ED 07/09 1400 Sodium Chloride 1,000 ML Q13H 07/09 0615 DC 07/09 IV 0614 Trazodone HCl 50 MG QPM 07/08 2245 AC 07/09 PO 2109 Laboratory Tests 07/10 07/09 0645 1615 Chemistry Sodium (137 - 145 mmol/L) 133 L Potassium (3.5 - 5.1 mmol/L) 4.1 Chloride (98 - 107 mmol/L) 98 Carbon Dioxide (22 - 30 mmol/L) 31 H Anion Gap (5 - 16) 4 L BUN (9 - 20 mg/dL) 8 L Creatinine (0.7 - 1.2 mg/dL) 0.8 Estimated GFR (>60 ml/min) > 60 BUN/Creatinine Ratio (7 - 25 %) 10.0 Total Bilirubin (0.2 - 1.3 mg/dL) 1.4 H Direct Bilirubin (< 0.4 mg/dL) 0.5 H AST (17 - 59 U/L) 82 H ALT (21 - 72 U/L) 102 H Alkaline Phosphatase (< 127 U/L) 102 Total Protein (6.3 - 8.2 g/dL) 5.5 L Albumin (3.5 - 5.0 g/dL) 2.9 L Triglycerides (<150 mg/dL) 573 H Cholesterol (< 200 MG/DL) 188 LDL Cholesterol Direct (<100 mg/dL) 46.44 LDL Cholesterol, Calc (65 - 129 mg/dL) ND HDL Cholesterol (40 - 60 mg/dL) 28 L Cholesterol/HDL Ratio (0.00 - 4.88 %) 7 H Amylase (30 - 110 U/L) 48 Lipase (23 - 300 U/L) 211 Coagulation PT (9.4 - 12.5 SEC) 10.0 INR (0.90 - 1.17) 0.95 APTT (25 - 37 SEC) 31 Hematology CBC w Diff Pending WBC Pending RBC Pending Hgb Pending Hct Pending MCV Pending MCH Pending RDW Pending Plt Count Pending MPV Pending PUBS MCHC Pending Serology Hepatitis A IgM Ab Pending Hep Bs Antigen Pending Hep B Core IgM Ab Conf Pending Hepatitis C Antibody Pending Vital Signs Date Time Temp Pulse Resp B/P B/P Pulse O2 O2 Flow FiO2 Mean Ox Delivery Rate 07/10 729 97.9 111 20 150/80 92 Room Air 07/09 2251 98.4 107 20 144/80 91 Room Air 07/09 1413 97.4 107 20 122/82 94 Room Air 07/09 0959 97.8 108 20 135/90 97 Room Air 07/09 0926 140/90
[2016-07-10 09:41] LABS: HEMATOCRIT 38.5 % (42-52)
--- NOTE | 2016-07-10 10:30 | PN- Endocrinology ---
Assessment/Plan Assessment: Patient is a 60-year-old gentleman with no significant past medical history presents to ED with sudden onset of epigastric pain associated with multiple episodes of nonbloody vomitus. He was admitted for acute pancreatitis probably due to alcohol and severe hypertriglyceridemia. He feels better this morning and has tolerated clear liquid diet. He was put on Atorvastatin 20 mg daily and Gemfibrizol 600 mg twice a day. MRI suggested hemangiomas in liver and acute pancreatitis in the setting of chronic calcific pancreatitis and an anatomic variant of pancreas divisum with segmental hypoenhancement of the pancreatic tail raises the suspicion of necrotic pancreatitis. Am lab showed CHOL 188, TRIG 573, HDL 28 and LDL 46; AST 82 and ALT 102. Plan: continue the current treatment; recommend checking HbA1c and monitor FSG once a day. will follow. Subjective Subjective: He feels improved this morning. Objective Last 24 Hrs of Vital Signs/I&O Vital Signs Date Time Temp Pulse Resp B/P B/P Pulse O2 O2 Flow FiO2 Mean Ox Delivery Rate 07/10 1011 150/80 07/10 0730 97.9 111 20 150/80 92 Room Air 07/09 2251 98.4 107 20 144/80 91 Room Air 07/09 1413 97.4 107 20 122/82 94 Room Air Intake & Output 07/10 1600 07/10 0800 05 0000 Intake Total 1600 1600 Output Total 300 100 Balance 1300 1500 Intake, IV 1600 1600 Output, Urine 300 100 Results Pertinent Lab/Raf Results: Laboratory Tests 07/10 07/09 0645 1615 Chemistry Sodium (137 - 145 mmol/L) 133 L Potassium (3.5 - 5.1 mmol/L) 4.1 Chloride (98 - 107 mmol/L) 98 Carbon Dioxide (22 - 30 mmol/L) 31 H Anion Gap (5 - 16) 4 L BUN (9 - 20 mg/dL) 8 L Creatinine (0.7 - 1.2 mg/dL) 0.8 Estimated GFR (>60 ml/min) > 60 BUN/Creatinine Ratio (7 - 25 %) 10.0 Total Bilirubin (0.2 - 1.3 mg/dL) 1.4 H Direct Bilirubin (< 0.4 mg/dL) 0.5 H AST (17 - 59 U/L) 82 H ALT (21 - 72 U/L) 102 H Alkaline Phosphatase (< 127 U/L) 102 Total Protein (6.3 - 8.2 g/dL) 5.5 L Albumin (3.5 - 5.0 g/dL) 2.9 L Triglycerides (<150 mg/dL) 573 H Cholesterol (< 200 MG/DL) 188 LDL Cholesterol Direct (<100 mg/dL) 46.44 LDL Cholesterol, Calc (65 - 129 mg/dL) ND HDL Cholesterol (40 - 60 mg/dL) 28 L Cholesterol/HDL Ratio (0.00 - 4.88 %) 7 H Amylase (30 - 110 U/L) 48 Lipase (23 - 300 U/L) 211 Vitamin B12 (239 - 931 pg/mL) Pending Coagulation PT (9.4 - 12.5 SEC) 10.0 INR (0.90 - 1.17) 0.95 APTT (25 - 37 SEC) 31 Hematology CBC w Diff NO MAN DIFF REQ WBC (4.8 - 10.8 /CUMM) 8.5 RBC (4.70 - 6.10 /CUMM) 3.77 L Hgb (14.0 - 18.0 G/DL) 13.0 L Hct (42 - 52 %) 38.5 L MCV (80.0 - 94.0 FL) 102.1 H MCH (27.0 - 31.0 PG) 34.5 H RDW (11.5 - 14.5 %) 14.3 Plt Count (130 - 400 /CUMM) 111 L MPV (7.4 - 10.4 FL) 8.5 Gran % (42.2 - 75.2 %) 83.1 H Lymphocytes % (20.5 - 51.1 %) 7.7 L Monocytes % (1.7 - 9.3 %) 8.2 Eosinophils % (0 - 5 %) 0.8 Basophils % (0.0 - 2.0 %) 0.2 Absolute Granulocytes (1.4 - 6.5 /CUMM) 7.1 H Absolute Lymphocytes (1.2 - 3.4 /CUMM) 0.7 L Absolute Monocytes (0.10 - 0.60 /CUMM) 0.7 H Absolute Eosinophils (0.0 - 0.7 /CUMM) 0.1 Absolute Basophils (0.0 - 0.2 /CUMM) 0 PUBS MCHC (33.0 - 37.0 G/DL) 33.8 Serology Hepatitis A IgM Ab (NONREACTIVE) NONREACTIVE Hep Bs Antigen (NONREACTIVE) NONREACTIVE Hep B Core IgM Ab Conf (NONREACTIVE) NONREACTIVE Hepatitis C Antibody (NONREACTIVE) NONREACTIVE
[2016-07-10] MEDS ORDERED: LOPID600 MG PO (13:33)
--- NOTE | 2016-07-10 13:35 | Patient Discharge Instructions ---
Discharge Instructions General Discharge Information You were seen/treated for: Inflammation of the pancreas (pancreatitis) Questionable infection in the tail of the pancreas Elevated triglyceride level Elevated liver enzymes You had these procedures: MRI of the abdomen Watch for these problems: Nausea, vomiting, abdominal pain, fevers or chills. Yellowing of the skin or eyes. Special Instructions: Please follow-up with your primary care physician in 1 week of discharge Please take medications as prescribed and your PCP will take care of further advice regarding gemfibrozil dose Please follow-up with rn building as outpatient in 1 week of discharge Diet Recommended Diet: Heart Healthy, Low Fat Activity Additional ACTIVITY Info: As tolerated Acute Coronary Syndrome Inclusion Criteria At DC or during hospital stay patient has or had the following: ACS DIAGNOSIS No Discharge Core Measures Meds if any: Prescribed or Continued at Discharge Meds if any: NOT Prescribed or Continued at Discharge Congestive Heart Failure Inclusion Criteria At DC or during hospital stay patient has or had the following: CHF DIAGNOSIS No Discharge Core Measures Meds if any: Prescribed or Continued at Discharge Meds if any: NOT Prescribed or Continued at Discharge Cerebrovascular accident Inclusion Criteria At DC or during hospital stay patient has or had the following: CVA/TIA Diagnosis No Discharge Core Measures Meds if any: Prescribed or Continued at Discharge Meds if any: NOT Prescribed or Continued at Discharge Venous thromboembolism Inclusion Criteria VTE Diagnosis No VTE Type NONE VTE Confirmed by (Test) NONE Discharge Core Measures - Per Current guidelines, there needs to be overlap - treatment for the first 5 days of Warfarin therapy. - If discharged on Warfarin prior to 5 days of - overlap therapy, the patient will need to be - assessed for post discharge needs including - *Post discharge parental anticoagulation - *Warfarin and/or parental anticoagulation education - *Follow up date to check INR post discharge At least 5 days overlap therapy as Inpatient No Meds if any: Prescribed or Continued at Discharge Note: Overlap Therapy is Warfarin and Anticoagulant Meds if any: NOT Prescribed or Continued at Discharge
--- NOTE | 2016-07-10 13:36 | Discharge Summary ---
Hospital Course Allergies: Coded Allergies: NO KNOWN ALLERGIES (UNKNOWN 07/09/16) Discharge Instructions Medications at Discharge Discharge Medications: Continue taking these medications: Trazodone HCl (Trazodone HCl) 50 MG TABLET 1 Tablet ORAL Every night Qty = 30 Escitalopram Oxalate (Escitalopram Oxalate) 20 MG TABLET 1 Tablet ORAL DAILY Qty = 90 Lisinopril (Lisinopril) 40 MG TABLET 1 Tablet ORAL DAILY Qty = 60 Atorvastatin Calcium (Atorvastatin Calcium) 20 MG TABLET 1 Tablet ORAL DAILY Qty = 30 Aspirin (Aspirin*) 81 MG TAB.CHEW 1 Tablet ORAL DAILY Start taking the following new medications: Gemfibrozil (Lopid) 600 MG TABLET 600 Milligram ORAL TWICE DAILY Days = 30 No Refills
[2016-07-10 14:42] VITALS: BP 120/80
--- NOTE | 2016-07-10 15:52 | NUR ---
Referral received this am from director case management, Yesica Mathew. This patient is a 60 year old man, admitted to hospital on 07/08/16 with acute pancreatitis. Patient requesting resources for substance abuse aftercare. I met with Ed this afternoon. He reports ETOH Abuse by history, long period of sobriety, and recent relapse, with interest in aftercare resources. He notes the deployment of his son to [facility] (for the second time) as a trigger. He is on social security disability due to a vision issue. Interested in information of our IOP; program discussed, but patient reluctant to make appointment at this time; contact information will be placed in his discharge instructions. Patient also provided with my business card should he have questions or concerns post discharge.
--- NOTE | 2016-07-10 17:55 | Transfer of Care Summary ---
Hospital Course Course Hospital Course: Patient 60-year-old gentleman with no significant past medical history but remote history of alcohol abuse came with chief complaint of epigastric pain associated with multiple episodes of non-bloody vomitus. On admission his triglyceride were found to be 2470 and lipase was 425. He was diagnosed with acute pancreatitis. Started on IV fluids and keep him nothing by mouth first. Patient was also started on gemfibrozil. He was also seen by gastroenterology because of acute pancreatitis, abnormal LFTs and nonspecific lesion on room of liver and questionable lesion in pancreas on imaging studies. CT abdomen and pelvis and later on abdominal MRI was done that showed nonsignificant/mild questionable pancreatic necrosis. Clinically patient improved progressively and was started on clear liquid that was advanced to full liquid. At this point gastroenterology is not thinking to consult surgery at this point. Patient needs to follow-up with gastroenterology as outpatient and needs to stop alcohol at all Assessment/Plan: We will advance diet to regular tomorrow. If remain stable and discharged home We will continue gemfibrozil 600 milligrams twice a day on discharge and patient will be followed up with PCP as outpatient and is his dose of his gemfibrozil will be tapered down Attending Review Statement Documenting Attending: KURTIS ELIZALDE MD
[2016-07-11 01:52] VITALS: BP 170/92
[2016-07-11 02:00] VITALS: BP 170/92
[2016-07-11 05:09] VITALS: BP 172/100
--- NOTE | 2016-07-11 06:51 | PN- Housestaff ---
Subjective Follow-up For: Acute pancreatitis Hypertriglyceridemia Questionable necrosis of pancreatic tail Hyponatremia Complaints: no complaints Tele-Events Since Last Visit: No telemetry monitoring Subjective: Interval history: There were no acute events overnight. This morning the patient states that he feels ready to tolerate his regular diet. He denies any recurrence of nausea, worsening abdominal pain, fevers or chills. He denies any bloody bowel movements overnight. Patient does report that he would like to be discharged today in the setting of his son and ready to leave for [facility]. Review of Systems Constitutional: Reports: see HPI. EENTM: Reports: no symptoms. Cardiovascular: Reports: no symptoms. Respiratory: Reports: no symptoms. Gastrointestinal: Reports: see HPI. Musculoskeletal: Reports: no symptoms. Objective Last 24 Hrs of Vital Signs/I&O Vital Signs Date Time Temp Pulse Resp B/P B/P Pulse O2 O2 Flow FiO2 Mean Ox Delivery Rate 07/11 0657 136/82 07/11 0509 98.3 100 16 172/100 94 Room Air 07/11 0200 170/92 07/11 0152 99.5 100 16 170/92 92 Room Air 07/10 1442 98.7 80 20 120/80 97 07/10 1011 150/80 Intake & Output 07/11 1600 07/11 0800 07/11 0000 Intake Total 800 Output Total 1500 Balance -700 Intake, IV 800 Output, Urine 1500 Physical Exam General Appearance: Alert, Cooperative, No Acute Distress Skin: No Breakdown HEENT: EOMI, Mucous Membr. moist/pink Cardiovascular: Regular Rate, Normal S1, Normal S2 Lungs: Normal Air Movement Abdomen: Normal Bowel Sounds, Soft Neurological: Normal Speech Extremities: Normal Pulses Current Medications: Current Medications Sig/Sara Start time Last Medication Dose Route Stop Time Status Admin Aspirin 81 MG DAILY 07/09 1000 AC 07/10 PO 1011 Atorvastatin Calcium 20 MG 1700 07/09 1700 AC 07/10 PO 1638 Enoxaparin Sodium 40 MG DAILY 07/09 1000 AC 07/10 SC 1013 Escitalopram Oxalate 20 MG DAILY 07/09 1000 AC 07/10 PO 1011 Gemfibrozil 600 MG BID 07/08 2200 AC 07/10 PO 2101 Hydromorphone HCl 1 MG Q4P PRN 07/09 0800 AC 07/11 IV 0137 Lactated Ringer's 1,000 ML .Q10H 07/09 1600 AC 07/11 IV 0138 Lisinopril 40 MG DAILY 07/09 1000 AC 07/10 PO 1011 Lorazepam 0 Q1P PRN 07/09 0030 AC IV Nicotine 21 MG DAILY 07/08 2145 07/10 TOP 1011 Trazodone HCl 50 MG QPM 07/08 2245 AC 07/10 PO 2101 Last 24 Hrs of Lab/Raf Results Last 24 Hrs of Labs/Mics: Laboratory Tests 07/11/16 0640: Anion Gap 9, Estimated GFR > 60, BUN/Creatinine Ratio 7.5, Phosphorus 2.5, Magnesium 1.9, CBC w Diff NO MAN DIFF REQ, RBC 3.97 L, MCV 102.0 H, MCH 34.9 H, RDW 14.3, MPV 8.3, Gran % 80.4 H, Lymphocytes % 9.8 L, Monocytes % 8.2, Eosinophils % 1.6, Basophils % 0 L, Absolute Granulocytes 7.2 H, Absolute Lymphocytes 0.9 L, Absolute Monocytes 0.7 H, Absolute Eosinophils 0.1, Absolute Basophils 0, PUBS MCHC 34.3 Assessment/Plan Assessment: 60-year-old gentleman with sudden onset epigastric pain, associated with several episodes of nausea and vomiting, labs revealing of triglyceride level of 2400, with a CT evidence of pancreatitis, presentation suggestive of hypertriglyceridemia induced pancreatitis. Patient does have history of excess alcohol intake several years ago, current alcohol consumption is 2 beers every other day. Yesterday, patient had 3-4 alcoholic drinks. Acute pancreatitis: Likely secondary to hypertriglyceridemia, or alcohol use. * Patient has been able to tolerate diet advancement * MRI findings with concern chronic calcification, pancreatic device him, and distal pancreatic tail necrosis. At this time the patient would like to be discharged. Will discuss with gastroenterology for recommendations for outpatient follow-up * Resolution of leukocytosis, afebrile and hemodynamically stable thus no indication for initiation of antimicrobial therapy at this time despite findings of questionable distal pancreatic tail necrosis * YOUSIF, ferritin, ferrous, HIV, YOUSIF, AMA ordered and came back negative with normal ferritin and ferrous levels of 46 Hypertriglyceridemia * Patient will be sent home on gemfibrozil and statin therapy * Low-fat diet recommendations * Hemoglobin A1c 5.6 Insomnia: Continue trazodone(patient insists) by mouth, after Zofran. Continue all other meds tomorrow, as tolerated. DNR/DNI. Problem List: 1. Hypertriglyceridemia 2. Pancreatitis 3. Pancreatic divisum 4. Abdominal pain Pain Ratin Pain Location: Generalized abdomen, epigastric region Pain Goal: Pain 4 or less Pain Plan: None required Tomorrow's Labs & Rationales: None required. Stable for discharge DVT/Prophylaxis: mechanical Consulting Request: Consulting Specialty: Gastroenterology Discharge Plan Discharge Disposition: home Stable for Discharge? Yes Anticipated Discharge (Day): today If Discharged Today/In 24 Hrs: enter antc discharge ord, W-10/discharge paper done, DC summary done, CMR done
[2016-07-11 06:57] VITALS: BP 136/82
[2016-07-11 07:53] LABS: ABSOLUTE BASOPHIL COUNT 0 /CUMM (0.0-0.2); ABSOLUTE EOSINOPHIL COUNT 0.1 /CUMM (0.0-0.7); ABSOLUTE GRANULOCYTE CT 7.2 /CUMM (1.4-6.5); ABSOLUTE LYMPH COUNT 0.9 /CUMM (1.2-3.4); ABSOLUTE MONOCYTE COUNT 0.7 /CUMM (0.10-0.60); BASOPHIL % 0 % (0.0-2.0); EOSINOPHIL % 1.6 % (0-5); GRANULOCYTE % 80.4 % (42.2-75.2); HEMATOCRIT 40.4 % (42-52); MEAN CORPUSCULAR HGB 34.9 PG (27.0-31.0); MEAN CORPUSCULAR HGB CONC 34.3 G/DL (33.0-37.0); MEAN PLATELET VOLUME 8.3 FL (7.4-10.4); PLATELET COUNT 142 /CUMM (130-400); RBC DISTRIBUTION WIDTH 14.3 % (11.5-14.5); RED BLOOD CELL CT 3.97 /CUMM (4.70-6.10)
--- NOTE | 2016-07-11 08:33 | PN- Endocrinology ---
Assessment/Plan Assessment: Patient is a 60-year-old gentleman with no significant past medical history presents to ED with sudden onset of epigastric pain associated with multiple episodes of nonbloody vomitus. He was admitted for acute pancreatitis probably due to alcohol and severe hypertriglyceridemia. MRI suggested hemangiomas in liver and acute pancreatitis in the setting of chronic calcific pancreatitis and an anatomic variant of pancreas divisum with segmental hypoenhancement of the pancreatic tail raises the suspicion of necrotic pancreatitis. He feels better this morning and has tolerated diet. He was put on Atorvastatin 20 mg daily and Gemfibrizol 600 mg twice a day. Am lab on 07/10/2016 showed CHOL 188, TRIG 573, HDL 28 and LDL 46; AST 82 and ALT 102. HbA1c 5.6%. Fasting FSG 104. Plan: continue the current treatment; stay away from ETOH and low fat diet; will follow. Subjective Subjective: He feels better. Objective Last 24 Hrs of Vital Signs/I&O Vital Signs Date Time Temp Pulse Resp B/P B/P Pulse O2 O2 Flow FiO2 Mean Ox Delivery Rate 07/11 0657 136/82 07/11 0509 98.3 100 16 172/100 94 Room Air 07/11 0200 170/92 07/11 0152 99.5 100 16 170/92 92 Room Air 07/10 1442 98.7 80 20 120/80 97 07/10 1011 150/80 Intake & Output 07/11 1600 07/11 0800 07/11 0000 Intake Total 800 Output Total 1500 Balance -700 Intake, IV 800 Output, Urine 1500 Results Pertinent Lab/Raf Results: Laboratory Tests 07/11 0640 Chemistry Sodium (137 - 145 mmol/L) 136 L Potassium (3.5 - 5.1 mmol/L) 3.5 Chloride (98 - 107 mmol/L) 95 L Carbon Dioxide (22 - 30 mmol/L) 31 H Anion Gap (5 - 16) 9 BUN (9 - 20 mg/dL) 6 L Creatinine (0.7 - 1.2 mg/dL) 0.8 Estimated GFR (>60 ml/min) > 60 BUN/Creatinine Ratio (7 - 25 %) 7.5 Phosphorus (2.5 - 4.5 mg/dL) 2.5 Magnesium (1.6 - 2.3 mg/dL) 1.9 Hematology CBC w Diff NO MAN DIFF REQ WBC (4.8 - 10.8 /CUMM) 9.0 RBC (4.70 - 6.10 /CUMM) 3.97 L Hgb (14.0 - 18.0 G/DL) 13.9 L Hct (42 - 52 %) 40.4 L MCV (80.0 - 94.0 FL) 102.0 H MCH (27.0 - 31.0 PG) 34.9 H RDW (11.5 - 14.5 %) 14.3 Plt Count (130 - 400 /CUMM) 142 MPV (7.4 - 10.4 FL) 8.3 Gran % (42.2 - 75.2 %) 80.4 H Lymphocytes % (20.5 - 51.1 %) 9.8 L Monocytes % (1.7 - 9.3 %) 8.2 Eosinophils % (0 - 5 %) 1.6 Basophils % (0.0 - 2.0 %) 0 L Absolute Granulocytes (1.4 - 6.5 /CUMM) 7.2 H Absolute Lymphocytes (1.2 - 3.4 /CUMM) 0.9 L Absolute Monocytes (0.10 - 0.60 /CUMM) 0.7 H Absolute Eosinophils (0.0 - 0.7 /CUMM) 0.1 Absolute Basophils (0.0 - 0.2 /CUMM) 0 PUBS MCHC (33.0 - 37.0 G/DL) 34.3
--- NOTE | 2016-07-11 09:01 | PN- Att Addend ---
Attending Addendum Attending Brief Note Patient reports no abdominal pain. General Appearance: Alert, No Acute Distress Skin: Grossly normal HEENT: PEERLA Neck: Supple, No JVD Cardiovascular: Regular Rate, Normal S1, Normal S2, No Murmurs Lungs: Clear to Auscultation, Normal Air Movement Abdomen: Positive bowel sounds, nontender and soft Neurological: Normal Speech, Strength at 5/5 X4 Ext, Cranial Nerves 3-12 NL, Reflexes 2+ Extremities: No Clubbing, No Cyanosis, No Edema Vascular: Normal Pulses Assessment 60-year-old with history of hypertriglyceridemia, hypertension and insomnia presenting with complaints of epigastric pain. He reports having a few drinks prior to admission. He does have history of alcohol dependence in the past and recently has cut down. CAT scan suggested mild pancreatitis with possible mass in the tail of pancreas and a 1.4 cm enhancing lesion in the liver. MRI suggested liver hemangiomas and possible pancreatic tail necrosis. Clinically patient has improved and has tolerated clear liquids this morning. He has remained pain-free. Patient requesting to be discharged. I have advised to continue oral fluids and report for any worsening of pain. Otherwise patient is stable for discharge. He does have borderline high blood pressure however it is difficult to assess given pain from pancreatitis. We will follow-up as outpatient. Plan Encourage by mouth fluids Continue gemfibrozil Discontinue pain meds and discharge patient home Current Medications Sig/Sara Start time Last Medication Dose Route Stop Time Status Admin Aspirin 81 MG DAILY 07/09 1000 AC 07/10 PO 1011 Atorvastatin Calcium 20 MG 1700 / 1700 AC 07/10 PO 1638 Enoxaparin Sodium 40 MG DAILY 07/09 1000 AC 07/10 SC 1013 Escitalopram Oxalate 20 MG DAILY 07/09 1000 AC 07/10 PO 1011 Gemfibrozil 600 MG BID 07/08 2200 AC 07/10 PO 2101 Hydromorphone HCl 1 MG Q4P PRN 07/09 0800 AC 07/11 IV 0137 Lactated Ringer's 1,000 ML .Q10H 07/09 1600 AC 07/11 IV 0138 Lisinopril 40 MG DAILY 07/09 1000 AC 07/10 PO 1011 Lorazepam 0 Q1P PRN 07/09 0030 AC IV Nicotine 21 MG DAILY 07/08 2145 AC 07/10 TOP 1011 Trazodone HCl 50 MG QPM 07/08 2245 AC 07/10 PO 2101 Laboratory Tests 07/11 0640 Chemistry Sodium (137 - 145 mmol/L) 136 L Potassium (3.5 - 5.1 mmol/L) 3.5 Chloride (98 - 107 mmol/L) 95 L Carbon Dioxide (22 - 30 mmol/L) 31 H Anion Gap (5 - 16) 9 BUN (9 - 20 mg/dL) 6 L Creatinine (0.7 - 1.2 mg/dL) 0.8 Estimated GFR (>60 ml/min) > 60 BUN/Creatinine Ratio (7 - 25 %) 7.5 Phosphorus (2.5 - 4.5 mg/dL) 2.5 Magnesium (1.6 - 2.3 mg/dL) 1.9 Hematology CBC w Diff NO MAN DIFF REQ WBC (4.8 - 10.8 /CUMM) 9.0 RBC (4.70 - 6.10 /CUMM) 3.97 L Hgb (14.0 - 18.0 G/DL) 13.9 L Hct (42 - 52 %) 40.4 L MCV (80.0 - 94.0 FL) 102.0 H MCH (27.0 - 31.0 PG) 34.9 H RDW (11.5 - 14.5 %) 14.3 Plt Count (130 - 400 /CUMM) 142 MPV (7.4 - 10.4 FL) 8.3 Gran % (42.2 - 75.2 %) 80.4 H Lymphocytes % (20.5 - 51.1 %) 9.8 L Monocytes % (1.7 - 9.3 %) 8.2 Eosinophils % (0 - 5 %) 1.6 Basophils % (0.0 - 2.0 %) 0 L Absolute Granulocytes (1.4 - 6.5 /CUMM) 7.2 H Absolute Lymphocytes (1.2 - 3.4 /CUMM) 0.9 L Absolute Monocytes (0.10 - 0.60 /CUMM) 0.7 H Absolute Eosinophils (0.0 - 0.7 /CUMM) 0.1 Absolute Basophils (0.0 - 0.2 /CUMM) 0 PUBS MCHC (33.0 - 37.0 G/DL) 34.3 Vital Signs Date Time Temp Pulse Resp B/P B/P Pulse O2 O2 Flow FiO2 Mean Ox Delivery Rate 07/11 0657 136/82 07/11 0509 98.3 100 16 172/100 94 Room Air 07/11 0200 170/92 07/11 0152 99.5 100 16 170/92 92 Room Air 07/10 1442 98.7 80 20 120/80 97 07/10 1011 150/80
--- NOTE | 2016-07-11 09:10 | Discharge Summary ---
Visit Information Visit Dates Admission Date: 07/08/16 Discharge Date: 07/11/16 Hospital Course Course Attending Physician: FRAN CHAHAL M.D Primary Care Physician: JAMMIE ARMSTRONG MD Consulting Request: Consulting Specialty: Gastroenterology Hospital Course: Mr Beltran is a 60-year-old gentleman with a PMH of hypertriglyceridemia, hypertension, anxiety/depression, tobacco and alcohol dependence (greater than [id number] currently half PPD), chronic pancreatitis, pancreatic calcifications on previous imaging who presented with complaints of left-sided epigastric discomfort and associated multiple episodes of nonbloody vomitus. Symptoms started 30 minutes after having some tomato soup, 10/10 intensity. ROS: He endorsed unintentional 6 pound weight loss over the past few months. He denied any scleral icterus, jaundice, dark urine. VS on admission: BP 183/100, HR 115, RR 18, SPO2 97% on RA, T 98.3 PE on admission: Alert and in no acute distress. RRR, normal S1/S2. Lungs CTA BL. Normal bowel sounds, soft with epigastric tenderness to palpation. Pertinent labs on admission: WBC 12.6, H&H 16.4/46.5, platelets 150, sodium 134, potassium 4.1, chloride 96, bicarbonate 24, BUN/CR 12/0.7, glucose 109. AST/ALT 269/196. Alkaline phosphatase: 141 Lipid profile: Cholesterol 283, TG 2470, HDL 25, LDL 30 Lipase: 425 EKG: Sinus tachycardia, NSST abnormality. No significant change from old CT abdomen pelvis: Diffuse peripancreatic inflammatory changes surrounding the distal pancreatic tail. This may represent focal pancreatitis of the distal pancreatic tail. Correlate with pancreatic enzyme levels. Coarse calcifications scattered throughout the pancreas, indicative of sequela of chronic pancreatitis. Focal heterogeneity within the distal pancreatic tail. This finding is entirely nonspecific and may represent edematous changes within the distal pancreatic tail given findings suggestive of acute focal pancreatitis. However, an underlying mass within this region cannot be entirely excluded. A nonemergent multiphase contrast-enhanced CT or MRI of the abdomen may be obtained for further characterization (pancreatic mass protocol). Diffuse hepatic steatosis. Of note, there is a 1.4 x 1.4 cm enhancing lesion within the hepatic dome, incompletely characterized on this examination. This lesion may be further characterized on multiphase contrast-enhanced CT or MRI of the abdomen (liver mass protocol). The contrast-enhanced MRI of the abdomen would be helpful in evaluating both the distal pancreatic tail as well as the liver barring any contraindications to MRI. 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 The patient was admitted to general medicine for management of the following problems: 1. Acute pancreatitis 2. Pancreatic divisum with evidence of necrosis and distal tail region 3. Hypertriglyceridemia 4. SIRS criteria 5. Hypertension 6. Tobacco dependence 7. Alcohol dependence Hospital course: 1. Acute pancreatitis * The patient was started on aggressive hydration with LR, antiemetics and analgesia provided with noticeable improvement over the three-day hospital course * YOUSIF, ferritin, ferrous, HIV, YOUSIF, AMA ordered and came back negative with normal ferritin and ferrous levels of 46 * Counseling on alcohol abstinence and healthy dietary choices provided to patient 2. Pancreatic divisum with evidence of necrosis and distal tail region MRI of the abdomen: 1. Above findings are most consistent with acute pancreatitis in the setting of chronic calcific pancreatitis and an anatomic variant of pancreas divisum. Relative segmental hypoenhancement of the distalmost pancreatic tail raises the suspicion of necrotic pancreatitis. 2. Prominent peripancreatic edema is seen without walled off collection or abscess noted. 3. The liver demonstrates 4 benign masses with imaging characteristics consistent with hemangiomas. No suspicious liver mass seen. 4. Hepatic steatosis. 5. Small bilateral renal cysts. 6. Grade 1 spondylolisthesis of L5 on S1. * No evidence of infection during the hospital course to warrant antimicrobial therapy * Recommendations after discharge for follow-up with his track repairer helper: To see Dr. Michael Bazzi for outpatient GI follow-up, for consideration of outpatient EUS (check pancreatic tail) 3. Hypertriglyceridemia * Triglycerides 2470 on admission. * Setting of transient NPO per pancreatitis management and initiation of fenofibrate noticeable declining triglycerides down just 573 during the next 2 days * Patient was discharged home on his current regimen of statin along with gemfibrozil 600 mg BID 4. SIRS criteria * Leukocytosis of 12.6, tachycardia on admission * Attributable to acute setting of inflammatory response due to pancreatitis. Resolved during the hospital course 5. Hypertension * Transient elevation in blood pressure in the setting of aggressive fluid hydration which normalized to low 140/90 6. Tobacco dependence * Tobacco risk associated with pancreatitis were discussed with the patient. Outpatient follow-up for cessation options 7. Alcohol dependence * Reports of alcohol abstinence provided to the patient during admission and discharge. Follow-up with outpatient PCP 8. Dietary recommendations: * Low-fat diet * Hemoglobin A1c 5.6 9. History of colon polyps: * Patient has a history of colon polyps. 06/16/2008: Colonoscopy to [facility] per Dr. Michael Bazzi- hot snare polypectomy of 5 mm benign pedunculated TA. (*He is overdue for follow-up surveillance colonoscopy advised for 06/2013). Allergies: Coded Allergies: NO KNOWN ALLERGIES (UNKNOWN 07/09/16) Disposition Summary Disposition Principal Diagnosis: Acute pancreatitis Additional Diagnosis: Pancreatic divisum with evidence of necrosis and distal tail region Hypertriglyceridemia SIRS criteria Hypertension Tobacco dependence Alcohol dependence Discharge Disposition: home or self care Discharge Instructions General Discharge Information Code Status: Do Not Resucitate/Intubat Patient's Diet: Regular diet: Low-fat Patient's Activity: As tolerated Follow-Up Instructions/Appts: Please follow-up with the PCP within one week after discharge. Please contact her track repairer helper with a 1-2 weeks after discharge for outpatient follow-up on pancreatic findings and overdue colonoscopy Medications at Discharge Discharge Medications: Continue taking these medications: Trazodone HCl (Trazodone HCl) 50 MG TABLET 1 Tablet ORAL Every night Qty = 30 Comments: Last Taken: 07/10/16 Time: 10pm Escitalopram Oxalate (Escitalopram Oxalate) 20 MG TABLET 1 Tablet ORAL DAILY Qty = 90 Comments: Last Taken: 07/11/16 Time: 9am Lisinopril (Lisinopril) 40 MG TABLET 1 Tablet ORAL DAILY Qty = 60 Comments: Last Taken: 07/11/16 Time: 9am Atorvastatin Calcium (Atorvastatin Calcium) 20 MG TABLET 1 Tablet ORAL DAILY Qty = 30 Comments: Last Taken: 07/10/16 Time: 5pm Aspirin (Aspirin*) 81 MG TAB.CHEW 1 Tablet ORAL DAILY Comments: Last Taken: 07/11/16 Time: 9am Start taking the following new medications: Gemfibrozil (Lopid) 600 MG TABLET 600 Milligram ORAL TWICE DAILY Days = 30 No Refills Comments: Last Taken: 07/11/16 Time: 9am Copies To: ALFREDITO COLE,LUIS A Jones; JUSTIN COLE,TIFFANI Valladares; FIDE COLE,[facility]; SULY COLE,[facility]ITAL[facility]ady
[2016-07-11] MEDS ORDERED: LOPID600 MG PO (09:11)
== END 2016-07-11 09:26 | DRG 439 ==
LOC: ERH 12:20 → 2NA 16:42 → ERHI 16:42 → 2NA 16:42 → ENRESERV 17:58 → 2NA 19:28 → ENPENDDIS 07-11 09:11 → 2NA 07-11 09:26
PROVIDERS: Emergency Medicine; Internal Medicine; Internal Medicine Hematology & Oncology; ADMIT Internal Medicine
DX: K85.91 Acute pancreatitis with uninfected necrosis, unspecified (principal); K70.10 Alcoholic hepatitis without ascites; E87.1 Hypo-osmolality and hyponatremia; I10 Essential (primary) hypertension; E78.5 Hyperlipidemia, unspecified; M06.9 Rheumatoid arthritis, unspecified; F41.9 Anxiety disorder, unspecified; H18.51 Endothelial corneal dystrophy; E78.1 Pure hyperglyceridemia; J44.9 Chronic obstructive pulmonary disease, unspecified; R91.8 Other nonspecific abnormal finding of lung field; K86.89 Other specified diseases of pancreas; F10.20 Alcohol dependence, uncomplicated; F17.210 Nicotine dependence, cigarettes, uncomplicated; Z86.010 Personal history of colon polyps
CPT/HCPCS: 2NAP; 75661; 36415; 74177; 74183; 81001; 82436; 86376; 86800; 87389; 93005; 93010; 96374; 96375; 96376; A9579; J0131; J1170; J1650; J2405; J3490